=== PATIENT | female | born 1985 | race Caucasian/White ===

== ENCOUNTER → 2020-09-05 12:13 | Outpatient (CLI) | payer OTHER, SELFPAY ==
--- NOTE | 2020-09-05 | DI.RAD.S_ITS ---
PROCEDURE: XR CHEST 2V INDICATIONS: Encounter for other preprocedural examination TECHNIQUE: 2 views of the chest were acquired. COMPARISON: None. FINDINGS: Surgical changes and devices: None. Lungs and pleura: Lungs are clear. No pleural effusions or pneumothorax. Incidental high-density 1 mm presumed calcified granuloma projects in the right upper lobe. Mediastinum: Mediastinal contours are normal. Heart size is normal. Bones and chest wall: No suspicious bony abnormalities. Soft tissues appear unremarkable. IMPRESSION: No acute disease Dictated by: En Cortes M.D. on 09/05/2020 at 15:07 Approved by: En Cortes M.D. on 09/05/2020 at 15:09
[2020-09-05 12:38] LABS: Bacteria Urine None Seen; RBC Urine None Seen (0-5/HPF)
[2020-09-05 12:55] LABS: Add Manual Diff / Slide Review NO; Basophils Absolute Auto 100 /uL (0-100); Basophils Percent Auto 0.7 % (0-2); Eosinophils Absolute Auto 0 /uL (0-450); Eosinophils Percent Auto 0.5 % (2-4); Hematocrit 38.9 % (36-46); Lymphocytes Absolute Auto 1800 /uL (1100-4500); Lymphocytes Percent Auto 23.6 % (25-40); Mean Corpuscular HGB Conc 33.3 % (30-36); Mean Corpuscular Volume 87.1 fL (80-100); Monocytes Absolute Auto 400 /uL (0-900); Monocytes Percent Auto 4.8 % (3-14); Neutrophils Absolute Auto 5400 /uL (1500-7000); Neutrophils Percent Auto 70.4 % (50-75); Platelet Count 251 X10^3/uL (150-400); Red Blood Cell Count 4.47 X10^6/uL (4.0-5.2); White Blood Cell Count 7.6 X10^3/uL (4.5-11.0)
[2020-09-05 13:04] LABS: INR 1.1 (0.9-1.3); Prothrombin Time 12.8 SECONDS (10.1-12.7)
[2020-09-05 13:07] LABS: PTT Partial Thromboplastin Tim 32 SECONDS (26.4-36.2)
[2020-09-05 13:09] LABS: Hemoglobin A1C% w Est Avg Glu 5.2 % (4.0-6.0)
[2020-09-05 13:11] LABS: Alanine Aminotransferase 46 IU/L (<35); Albumin 4.6 g/dL (3.5-5.0); Albumin Globulin Ratio 1.4 (1.0-2.8); Alkaline Phosphatase 80 U/L (38-126); Aspartate Aminotransferase 44 IU/L (14-36); BUN Creatinine Ratio 33.3 (6-22); Bilirubin Total 0.3 mg/dL (0.2-1.3); Blood Urea Nitrogen 18 mg/dL (7-17); Calcium 9.7 mg/dL (8.4-10.2); Carbon Dioxide 25 mmol/L (22-32); Chloride 105 mmol/L (98-107); Estimated Glomerular Filt Rate > 60.0 mL/min (>60); Globulin 3.2 g/dL (1.7-4.1); Glucose 104 mg/dL (70-100); HEMOLYSIS < 15 (0-50); Potassium 4.3 mmol/L (3.4-5.1); Sodium 138 mmol/L (137-145); Total Protein 7.8 g/dL (6.3-8.2)
[2020-09-05 13:27] LABS: HCG Quantitative /Beta subunit < 2.4 mIU/mL
[2020-09-05 15:16] LABS: HIV 1 & 2 Ab/Ag 4th Gen Combo NEGATIVE (NEGATIVE); Hep C Virus Ab w/Reflex Quant NEGATIVE s/c (NEGATIVE)
[2020-09-05 16:05] LABS: Appearance Urine UA Clear; Color Urine UA Yellow; pH Urine UA 6.5 (4.5-8.0)
[2020-09-05 16:06] LABS: Bilirubin Urine UA NEGATIVE (NEGATIVE); Glucose Urine UA NEGATIVE (Negative); Ketones Urine UA NEGATIVE (NEGATIVE); Nitrite Urine UA NEGATIVE (Negative); Occult Blood Urine UA NEGATIVE (Negative); Protein Urine UA NEGATIVE (Negative); Specific Gravity Urine UA 1.015 (1.000-1.035)
[2020-09-05 16:07] LABS: Culture Indicated Urine Cult Not Indicated; Leukocyte Esterase Urine UA NEGATIVE (NEGATIVE); Squamous Epithelial Cell Urine 0-1 /HPF (0-5/HPF); Urobilinogen Urine UA 0.2 E.U./dL (0.2); WBC Urine 0-1/HPF (0-5/HPF)
[2020-09-05 17:41] LABS: Thyroid Stimulating Hormone 0.431 uIU/mL (0.47-4.68)
== END ==
PROVIDERS: PCP Family Medicine; Visit Provider Plastic Surgery
DX: Z01.818 Encounter for other preprocedural examination (principal)
CPT/HCPCS: 36415; 71046; 80053; 81001; 83036; 84443; 84702; 85025; 85610; 85730; 86803; 87389; 93005; 93010

== ENCOUNTER → 2020-09-08 10:06 | Outpatient (CLI) | payer OTHER, SELFPAY ==
[2020-09-08 10:54] LABS: Hemoglobin A1C% w Est Avg Glu 5.1 % (4.0-6.0)
[2020-09-08 11:24] LABS: Alanine Aminotransferase 27 IU/L (<35); Albumin 4.4 g/dL (3.5-5.0); Albumin Globulin Ratio 1.6 (1.0-2.8); Alkaline Phosphatase 67 U/L (38-126); Aspartate Aminotransferase 24 IU/L (14-36); BUN Creatinine Ratio 30.6 (6-22); Bilirubin Total 0.3 mg/dL (0.2-1.3); Blood Urea Nitrogen 19 mg/dL (7-17); Calcium 9.8 mg/dL (8.4-10.2); Carbon Dioxide 25 mmol/L (22-32); Chloride 105 mmol/L (98-107); Estimated Glomerular Filt Rate > 60.0 mL/min (>60); Globulin 2.7 g/dL (1.7-4.1); Glucose 96 mg/dL (70-100); HEMOLYSIS < 15 (0-50); Potassium 4.3 mmol/L (3.4-5.1); Sodium 139 mmol/L (137-145); Total Protein 7.1 g/dL (6.3-8.2)
[2020-09-08 11:55] LABS: Thyroid Stimulating Hormone 1.19 uIU/mL (0.47-4.68)
== END ==
LOC: LAB 10:09
PROVIDERS: PCP Family Medicine; Referring Provider Plastic Surgery; Visit Provider Plastic Surgery
DX: Z01.818 Encounter for other preprocedural examination (principal)
CPT/HCPCS: 36415; 80053; 83036; 84443; 93005; 93010

== ENCOUNTER 2020-09-13 10:52 | Emergency (ER) | payer OTHER, SELFPAY ==
[2020-09-13 10:53] VITALS: BP 140/82; PULSE 81; RESP 15; TEMP 36.5; O2SAT 100; BMI 22.1
[2020-09-13 11:14] LABS: Appearance Urine UA CLEAR; Bilirubin Urine UA NEGATIVE (NEGATIVE); Color Urine UA YELLOW; Glucose Urine UA TRACE g/dL (Negative); Ketones Urine UA NEGATIVE (NEGATIVE); Leukocyte Esterase Urine UA NEGATIVE (NEGATIVE); Nitrite Urine UA POSITIVE (Negative); Occult Blood Urine UA 2+ (Negative); Protein Urine UA 1+ (Negative); Specific Gravity Urine UA 1.025 (1.000-1.035)
[2020-09-13] MEDS: ONDANSETRON 4 MG ODT SL (11:28)
[2020-09-13 11:29] LABS: Bacteria Urine Few (2-10); Culture Indicated Urine Specimen Cultured; RBC Urine 1-5/HPF (0-5/HPF); Squamous Epithelial Cell Urine 0-1 /HPF (0-5/HPF); WBC Urine 0-1/HPF (0-5/HPF)
--- NOTE | 2020-09-13 11:39 | ED.FEMALEGU ---
HPI - Female Genitourinary General Chief complaint: Urogenital-Female Stated complaint: uti/n&v x5days on Macrobid Time Seen by Provider: 09/13/20 11:39 Source: patient Mode of arrival: Ambulatory Limitations: no limitations History of Present Illness HPI Narrative: This is a 34-year-old female emergency department for just about a week of urinary frequency. Patient had a tele visit was started on Macrobid orally and has been taking azo and has been having worsening abdominal discomfort. She has had sharp pains in the pelvic area as well as worsening dysuria, urinary frequency, sense of urgency and incomplete emptying. She denies any flank pain but states it is starting to wrap towards the sides. She has not had any fevers or chills she has had nausea and vomiting several times today and has not been able to keep down any oral fluids. She has been nauseated for the last several days. She has had some mild diarrhea no black or bloody stools. She denies any vaginal bleeding or discharge. Patient states she has history of anti polysaccharide antibiotic deficiency, hypothyroidism and vitamin-D deficiency. Patient states she has been off her IV IG for several months after his operations specialist left the area. She has been in contact with her her primary care physician but they do not regularly prescribed her medication. Patient did state that the company that provides her medication reached out to her to ask if she needed assistance this week but that she did not really explore that option. She does have an operations specialist in [place] but because she no longer lives states they are not willing to prescribe her. Patient states that her at her tele visit they did not obtain a outpatient urine sample and treated on symptomatology. 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 She states this occurs when she is off her IV IG. Related Data Home Medications Medication Instructions Recorded Confirmed albuterol sulfate 90 mcg/actuation 2 puff INHALATION Q6H PRN 09/06/20 09/06/20 aerosol inhaler epinephrine 0.3 mg/0.3 mL 0.3 mg IM Q5-15M PRN 09/06/20 09/06/20 injection, auto-injector ergocalciferol (vitamin D2) 1,250 1,250 mcg PO QWEEK 09/06/20 09/06/20 mcg (50,000 unit) capsule levothyroxine 50 mcg capsule 50 mcg PO DAILY 09/06/20 09/06/20 Previous Rx's Medication Instructions Recorded cephalexin 500 mg PO BID 7 Days #14 cap 09/13/20 ondansetron 4 mg PO QID PRN #7 tab 09/13/20 Allergies Allergy/AdvReac Type Severity Reaction Status Date / Time No Known Drug Allergies Allergy Verified 09/13/20 10:58 walnuts Allergy Severe my throat Uncoded 09/06/20 10:36 swells up Review of Systems Review of Systems ROS Unobtainable: All systems reviewed & are unremarkable except as noted in HPI and below Patient History Medical History Anti-polysaccharide antibody deficiency Elevated liver enzymes Hyperglycemia Hypothyroidism Lung granuloma Vitamin D deficiency alcohol intake frequency: holidays/special occasions only Substance Use Type: does not use Exam Narrative Exam Narrative: GENERAL: Alert and oriented x three, thin female in mild distress. Patient was ambulating back to the room from the bathroom when I met her in the examination room. HEENT: Head normocephalic, atraumatic, EOMI, pupils reactive, face symmetric, moist mucous membranes NECK: Supple, full range of motion CARDIOVASCULAR: Regular rate and rhythm without murmurs, rubs or gallops. RESPIRATORY: Breath sounds equal bilaterally, no wheezes rales or rhonchi. ABDOMEN: Soft, mild suprapubic tenderness. Normoactive bowel sounds all 4 quadrants. No guarding or rebound, rigidity, no mass : No CVA tenderness EXTREMITIES: Normal range of motion, no clubbing or edema. Neurovascularly intact NEUROLOGICAL: Cranial nerves II through XII grossly intact. Moving all extremities SKIN: Warm, dry, no petechiae, no rashes or lesions. Initial Vital Signs Initial Vital Signs: Vital Signs Temperature 97.7 F 09/13/20 10:53 Pulse Rate 81 09/13/20 10:53 Respiratory Rate 15 09/13/20 10:53 Blood Pressure 140/82 09/13/20 10:53 Pulse Oximetry 100 09/13/20 10:53 Course Orders Ordered: ED Orders 09/13/20 11:02 Urinalysis and Microscopic Stat Urine Culture Stat 09/13/20 12:30 Complete Blood Count AUTO DIFF Stat Comprehensive Metabolic Panel Stat Lipase Stat Discontinued Medications Sodium Chloride (Normal Saline 0.9%) 1,000 mls @ 1,000 mls/hr IV BOLUS ONE Stop: 09/13/20 13:03 Last Infusion: 09/13/20 13:43 Dose: 0 mls/hr Documented by: Admin: 09/13/20 12:41 Dose: 1,000 mls/hr Documented by: OMAR Ceftriaxone Sodium/Dextrose (Rocephin) 1 gm in 50 mls @ 100 mls/hr IV NOW ONE Stop: 09/13/20 12:34 Last Infusion: 09/13/20 13:20 Dose: 0 mls/hr Documented by: Admin: 09/13/20 12:42 Dose: 100 mls/hr Documented by: OMAR Ondansetron HCl (Ondansetron 4 Mg Odt) 4 mg SL NOW ONE Stop: 09/13/20 11:24 Last Admin: 09/13/20 11:28 Dose: 4 mg Documented by: OMAR Vital Signs Vital signs: Vital Signs - 8 hr 09/13/20 13:46 Pulse Rate 80 Respiratory Rate 18 Blood Pressure 130/72 Pulse Oximetry 98 MDM - Female Genitourinary Lab Data Attestation: I reviewed the patient's lab results. Result diagrams: 09/13/20 12:30 09/13/20 12:30 Labs: Lab Results 09/13/20 09/13/20 09/13/20 Range/Units 11:02 12:30 12:30 WBC 5.5 (4.5-11.0) X10^3/uL RBC 4.09 (4.0-5.2) X10^6/uL Hgb 11.9 L (12.0-16.0) g/dL Hct 35.5 L (36-46) % MCV 86.8 (80-100) fL MCH 29.1 (26-34) PG MCHC 33.5 (30-36) % RDW 12.7 (11.6-14.8) % Plt Count 210 (150-400) X10^3/uL Neut % (Auto) 46.9 L (50-75) % Lymph % (Auto) 45.2 H (25-40) % [place] % (Auto) 5.5 (3-14) % Eos % (Auto) 1.6 L (2-4) % Baso % (Auto) 0.8 (0-2) % Neut # (Auto) 2600 (3168-0141) /uL Lymph # (Auto) 2500 (6609-8637) /uL [place] # (Auto) 300 (0-900) /uL Eos # (Auto) 100 (0-450) /uL Baso # (Auto) 0 (0-100) /uL Sodium 137 (137-145) mmol/L Potassium 4.1 (3.4-5.1) mmol/L Chloride 105 (98-107) mmol/L Carbon Dioxide 27 (22-32) mmol/L BUN 14 (7-17) mg/dL Creatinine 0.48 L (0.52-1.04) mg/dL Estimated GFR > 60.0 (>60) mL/min BUN/Creatinine Ratio 29.2 H (6-22) Glucose 82 (70-100) mg/dL Calcium 9.5 (8.4-10.2) mg/dL Total Bilirubin 0.3 (0.2-1.3) mg/dL AST 24 (14-36) IU/L ALT 20 (<35) IU/L Alkaline Phosphatase 67 (38-126) U/L Total Protein 7.4 (6.3-8.2) g/dL Albumin 4.5 (3.5-5.0) g/dL Globulin 2.9 (1.7-4.1) g/dL Albumin/Globulin Ratio 1.6 (1.0-2.8) Lipase (23-300) U/L Urine Color Yellow Urine Appearance Clear Urine pH 6.0 (4.5-8.0) Ur Specific [place] 1.025 (1.000-1.035) Urine Protein 1+ H (Negative) Urine Glucose (UA) Trace H (Negative) g/dL Urine Ketones Negative (NEGATIVE) Urine Occult Blood 2+ H (Negative) Urine Nitrate Positive H (Negative) Urine Bilirubin Negative (NEGATIVE) Urine Urobilinogen 1.0 (0.2) E.U./dL Ur Leukocyte Esterase Negative (NEGATIVE) Urine RBC 1-5/hpf (0-5/HPF) Urine WBC 0-1/hpf (0-5/HPF) Ur Squamous Epith Cells 0-1 /hpf (0-5/HPF) Urine Bacteria Few (2-10) H (None) Ur Culture Indicated? Specimen cultured 09/13/20 Range/Units 12:30 WBC (4.5-11.0) X10^3/uL RBC (4.0-5.2) X10^6/uL Hgb (12.0-16.0) g/dL Hct (36-46) % MCV (80-100) fL MCH (26-34) PG MCHC (30-36) % RDW (11.6-14.8) % Plt Count (150-400) X10^3/uL Neut % (Auto) (50-75) % Lymph % (Auto) (25-40) % [place] % (Auto) (3-14) % Eos % (Auto) (2-4) % Baso % (Auto) (0-2) % Neut # (Auto) (6488-8463) /uL Lymph # (Auto) (5014-3152) /uL [place] # (Auto) (0-900) /uL Eos # (Auto) (0-450) /uL Baso # (Auto) (0-100) /uL Sodium (137-145) mmol/L Potassium (3.4-5.1) mmol/L Chloride (98-107) mmol/L Carbon Dioxide (22-32) mmol/L BUN (7-17) mg/dL Creatinine (0.52-1.04) mg/dL Estimated GFR (>60) mL/min BUN/Creatinine Ratio (6-22) Glucose (70-100) mg/dL Calcium (8.4-10.2) mg/dL Total Bilirubin (0.2-1.3) mg/dL AST (14-36) IU/L ALT (<35) IU/L Alkaline Phosphatase (38-126) U/L Total Protein (6.3-8.2) g/dL Albumin (3.5-5.0) g/dL Globulin (1.7-4.1) g/dL Albumin/Globulin Ratio (1.0-2.8) Lipase 61 (23-300) U/L Urine Color Urine Appearance Urine pH (4.5-8.0) Ur Specific [place] (1.000-1.035) Urine Protein (Negative) Urine Glucose (UA) (Negative) g/dL Urine Ketones (NEGATIVE) Urine Occult Blood (Negative) Urine Nitrate (Negative) Urine Bilirubin (NEGATIVE) Urine Urobilinogen (0.2) E.U./dL Ur Leukocyte Esterase (NEGATIVE) Urine RBC (0-5/HPF) Urine WBC (0-5/HPF) Ur Squamous Epith Cells (0-5/HPF) Urine Bacteria (None) Ur Culture Indicated? Point of Care Testing Test Results Negative MDM Narrative Medical decision making narrative: This is a 34-year-old female with UTI nausea vomiting without fever who has had 5 days of Macrobid but never had a urine culture or urinalysis prior to starting antibiotics. Her UA today is consistent. She does have a history immune deficiency and typically gets IV IG but has been without for several months as her operations specialist left the area and she has not reestablished. Patient labs do not show any major changes. She is able to tolerate orals here and was given a dose of IV Rocephin and changed antibiotics. Return precautions are discussed and urine culture is pending. Discharge Plan Departure Patient Disposition: Home Clinical Impression: UTI (urinary tract infection) Instructions: DI for Urinary Tract Infection (UTI) Activity Restrictions/Additional Instructions: Follow up with your physician in the next 2-3 days for recheck. Urine culture is pending and typically results in 48-72 hours. You can contact [facility] allergy [facility] inflammation clinic at [phone] [email or web address] is the website. This is an option and may be the closest options for a operations specialist although contacting your medication representatives may be able to give you some better closer options. Take antibiotics until they are completely gone. You can stop your Macrobid. You may take Azo if you find it helpful. Continue to hydrate regularly. You may take Zofran 1 tablet every 6 hours as needed for nausea. Prescription to [facility] in [place] Please return for fevers, lightheadedness or passing out, persistent vomiting, rapidly worsening abdominal, back or flank pain, black or bloody stools or other new or concerning symptoms. Prescriptions: New cephalexin 500 mg capsule 500 mg PO BID 7 Days Qty: 14 RF: 0 ondansetron 4 mg tablet,disintegrating 4 mg PO QID PRN (Reason: nausea and vomiting) Qty: 7 RF: 0 No Action levothyroxine 50 mcg capsule 50 mcg PO DAILY RF: 0 ergocalciferol (vitamin D2) 1,250 mcg (50,000 unit) capsule 1,250 mcg PO QWEEK RF: 0 epinephrine 0.3 mg/0.3 mL auto-injector 0.3 mg IM Q5-15M PRNRF: 0 albuterol sulfate 90 mcg/actuation HFA aerosol inhaler 2 puff inhalation Q6H PRNRF: 0 Referrals: Caleb Esposito MD [Primary Care Provider] -
[2020-09-13] MEDS: SODIUM CHLORIDE 0.9% 1,000 ML 1000 ML IV (12:41)
[2020-09-13] MEDS: CEFTRIAXONE 1 GM/50 ML FROZ.PIGGY IV (12:42)
[2020-09-13 12:43] LABS: Add Manual Diff / Slide Review NO; Basophils Absolute Auto 0 /uL (0-100); Basophils Percent Auto 0.8 % (0-2); Eosinophils Absolute Auto 100 /uL (0-450); Eosinophils Percent Auto 1.6 % (2-4); Hematocrit 35.5 % (36-46); Hemoglobin 11.9 g/dL (12.0-16.0); Lymphocytes Absolute Auto 2500 /uL (1100-4500); Lymphocytes Percent Auto 45.2 % (25-40); Mean Corpuscular HGB Conc 33.5 % (30-36); Mean Corpuscular Hemoglobin 29.1 PG (26-34); Mean Corpuscular Volume 86.8 fL (80-100); Monocytes Absolute Auto 300 /uL (0-900); Monocytes Percent Auto 5.5 % (3-14); Neutrophils Absolute Auto 2600 /uL (1500-7000); Neutrophils Percent Auto 46.9 % (50-75); Platelet Count 210 X10^3/uL (150-400); Red Blood Cell Count 4.09 X10^6/uL (4.0-5.2); Red Cell Distribution Width 12.7 % (11.6-14.8); White Blood Cell Count 5.5 X10^3/uL (4.5-11.0)
[2020-09-13 12:58] LABS: Alanine Aminotransferase 20 IU/L (<35); Albumin 4.5 g/dL (3.5-5.0); Albumin Globulin Ratio 1.6 (1.0-2.8); Alkaline Phosphatase 67 U/L (38-126); Aspartate Aminotransferase 24 IU/L (14-36); BUN Creatinine Ratio 29.2 (6-22); Bilirubin Total 0.3 mg/dL (0.2-1.3); Blood Urea Nitrogen 14 mg/dL (7-17); Calcium 9.5 mg/dL (8.4-10.2); Carbon Dioxide 27 mmol/L (22-32); Chloride 105 mmol/L (98-107); Estimated Glomerular Filt Rate > 60.0 mL/min (>60); Globulin 2.9 g/dL (1.7-4.1); Glucose 82 mg/dL (70-100); HEMOLYSIS < 15 (0-50); Lipase 61 U/L (23-300); Potassium 4.1 mmol/L (3.4-5.1); Sodium 137 mmol/L (137-145); Total Protein 7.4 g/dL (6.3-8.2)
[2020-09-13 13:46] VITALS: BP 130/72; PULSE 80; RESP 18; O2SAT 98
== END 2020-09-13 14:10 | disposition home or self-care (01) ==
PROVIDERS: Emergency Provider Emergency Medicine; PCP Family Medicine
DX: N39.0 Urinary tract infection, site not specified (principal); R10.2 Pelvic and perineal pain; R11.0 Nausea
CPT/HCPCS: 36415; 80053; 81001; 81025; 83690; 85025; 87086; 96365; 99284

== ENCOUNTER → 2020-09-14 14:42 | Outpatient (CLI) | payer OTHER, SELFPAY ==
[2020-09-14 15:48] LABS: Cholesterol 208 mg/dL (140-199); HDL Cholesterol 49 mg/dL (40-60); LDL Cholesterol Calculated 131 mg/dL (<100); Triglycerides 139 mg/dL (35-150)
[2020-09-19 01:11] LABS: QuantiFERON Mitogen Value >10.00 IU/mL (.); QuantiFERON Nil Value 0.28 IU/mL (.); QuantiFERON TB Gold Plus Negative (Negative); QuantiFERON TB1 Ag Value 0.28 IU/mL (.); QuantiFERON TB2 Ag Value 0.16 IU/mL (.)
== END ==
PROVIDERS: PCP Family Medicine; Referring Provider Surgery Plastic and Reconstructive Surgery; Visit Provider Surgery Plastic and Reconstructive Surgery
DX: J84.10 Pulmonary fibrosis, unspecified (principal); R74.8 Abnormal levels of other serum enzymes
CPT/HCPCS: 36415; 80061; 86480

== ENCOUNTER 2020-09-15 11:52 | Emergency (ER) | payer OTHER, SELFPAY ==
[2020-09-15 11:56] VITALS: BP 122/91; PULSE 83; RESP 14; TEMP 36.7; O2SAT 99; BMI 22.1
--- NOTE | 2020-09-15 13:18 | PC.NURSE ---
tender lower abd. patient has been on abx, taking azo at home. No relief of symptoms. Started initially one week ago. Intermittent sharp like someone is electrocuting me
[2020-09-15 13:22] LABS: Add Manual Diff / Slide Review NO; Basophils Absolute Auto 0 /uL (0-100); Basophils Percent Auto 0.6 % (0-2); Eosinophils Absolute Auto 100 /uL (0-450); Eosinophils Percent Auto 1.9 % (2-4); Hematocrit 36.7 % (36-46); Hemoglobin 12.1 g/dL (12.0-16.0); Lymphocytes Absolute Auto 2700 /uL (1100-4500); Lymphocytes Percent Auto 40.6 % (25-40); Mean Corpuscular HGB Conc 32.9 % (30-36); Monocytes Absolute Auto 500 /uL (0-900); Monocytes Percent Auto 6.8 % (3-14); Neutrophils Absolute Auto 3400 /uL (1500-7000); Neutrophils Percent Auto 50.1 % (50-75); Platelet Count 207 X10^3/uL (150-400); Red Blood Cell Count 4.18 X10^6/uL (4.0-5.2); Red Cell Distribution Width 12.8 % (11.6-14.8); White Blood Cell Count 6.7 X10^3/uL (4.5-11.0)
[2020-09-15 13:28] LABS: INR 1.1 (0.9-1.3); Prothrombin Time 12.7 SECONDS (10.1-12.7)
[2020-09-15 13:29] LABS: Bacteria Urine None Seen; WBC Urine None Seen (0-5/HPF)
[2020-09-15 13:31] LABS: PTT Partial Thromboplastin Tim 31 SECONDS (26.4-36.2)
[2020-09-15] MEDS: PHENAZOPYRIDINE 100 MG TABLET 200 MG PO (13:32)
[2020-09-15] MEDS: SODIUM CHLORIDE 0.9% 1,000 ML 1000 ML IV (13:32)
[2020-09-15] MEDS: ONDANSETRON 4 MG/2 ML INJ IV (13:32)
[2020-09-15 13:36] LABS: Lactate (Lactic Acid) 0.7 mmol/L (0.7-2.1)
[2020-09-15 13:37] LABS: Alanine Aminotransferase 18 IU/L (<35); Albumin 4.4 g/dL (3.5-5.0); Albumin Globulin Ratio 1.4 (1.0-2.8); Alkaline Phosphatase 64 U/L (38-126); Aspartate Aminotransferase 22 IU/L (14-36); BUN Creatinine Ratio 19.6 (6-22); Bilirubin Total 0.3 mg/dL (0.2-1.3); Blood Urea Nitrogen 10 mg/dL (7-17); Calcium 9.4 mg/dL (8.4-10.2); Carbon Dioxide 29 mmol/L (22-32); Chloride 103 mmol/L (98-107); Estimated Glomerular Filt Rate > 60.0 mL/min (>60); Globulin 3.1 g/dL (1.7-4.1); Glucose 84 mg/dL (70-100); HEMOLYSIS < 15 (0-50); Lipase 71 U/L (23-300); Sodium 138 mmol/L (137-145); Total Protein 7.5 g/dL (6.3-8.2)
[2020-09-15 13:43] LABS: Culture Indicated Urine Cult Not Indicated; RBC Urine 1-5/HPF (0-5/HPF)
--- NOTE | 2020-09-15 13:43 | ED_ITS ---
HPI - Female Genitourinary General Chief complaint: Urogenital-Female Stated complaint: UTI not going away, sent by PCP Time Seen by Provider: 09/15/20 12:59 Source: patient Mode of arrival: Ambulatory Limitations: no limitations History of Present Illness HPI Narrative: Patient is a 34-year-old female who presents with persistent ongoing painful frequent urination. She was diagnosed with UTI by tele medicine 1 week ago placed on Macrobid for 5 days. She is in seen in the ED 2 days ago for worsening pain. At that time she was given a dose of IV Rocephin and switch over to Keflex. Her urine did show nitrate and blood however her urine culture and sensitivity surprisingly did not show any growth. Urine today does not show nitrate but she is continuing to have increasing suprapubic pain. She was having flank pain she says that that has improved. She denies fever or chills. She has continue to take [id number] azo as and was given Pyridium here in the ED for worsening symptoms. MD Complaint: UTI Onset (ago): week(s) (1) Related Data Home Medications Medication Instructions Recorded Confirmed albuterol sulfate 90 mcg/actuation 2 puff INHALATION Q6H PRN 09/06/20 09/06/20 aerosol inhaler epinephrine 0.3 mg/0.3 mL 0.3 mg IM Q5-15M PRN 09/06/20 09/06/20 injection, auto-injector ergocalciferol (vitamin D2) 1,250 1,250 mcg PO QWEEK 09/06/20 09/06/20 mcg (50,000 unit) capsule levothyroxine 50 mcg capsule 50 mcg PO DAILY 09/06/20 09/06/20 Previous Rx's Medication Instructions Recorded cephalexin 500 mg PO BID 7 Days #14 cap 09/13/20 ondansetron 4 mg PO QID PRN #7 tab 09/13/20 phenazopyridine [Pyridium] 200 mg PO TID PRN #6 tab 09/15/20 Allergies Allergy/AdvReac Type Severity Reaction Status Date / Time No Known Drug Allergies Allergy Verified 09/15/20 12:00 walnuts Allergy Severe my throat Uncoded 09/06/20 10:36 swells up Review of Systems Review of Systems Narrative: GENERAL: Denies chills, fatigue, malaise, fever, sweats, travel HEENT: Denies sinus pain, ear pain, sore throat, difficulty swallowing, neck pain RESPIRATORY: Denies dyspnea, cough, wheezing, hemoptysis, sputum. CARDIOVASCULAR: Denies chest pain, palpitations, orthopnea, edema GASTROINTESTINAL: Denies nausea, vomiting, abdominal pain, diarrhea, constipation, melena. : See HP MUSCULOSKELETAL: Denies weakness, joint pain, or bony pain SKIN: No rash, no erythema, no pruritus NEUROLOGIC: Denies weakness, dizziness, headache, numbness, change in speech, confusion PSYCHIATRIC: No concerning psychosocial issues. 12 point review of systems is negative except for those stated above and HPI Patient History Medical History Anti-polysaccharide antibody deficiency Elevated liver enzymes Hyperglycemia Hypothyroidism Lung granuloma Vitamin D deficiency alcohol intake frequency: holidays/special occasions only Substance Use Type: does not use Exam Initial Vital Signs Initial Vital Signs: Vital Signs Temperature 98.1 F 09/15/20 11:56 Pulse Rate 83 09/15/20 11:56 Respiratory Rate 14 09/15/20 11:56 Blood Pressure 122/91 H 09/15/20 11:56 Pulse Oximetry 99 09/15/20 11:56 GENERAL: Alert well-appearing 34-year-old female and in no acute distress. HEENT: Head atraumatic,EOMI, pupils reactive, face symmetric, moist mucous membranes CARDIOVASCULAR: Regular rate and rhythm without murmurs, rubs or gallops. RESPIRATORY: Breath sounds equal bilaterally, no wheezes rales or rhonchi. ABDOMEN: Soft, mild suprapubic pain : No CVA tenderness PELVIC: External genitalia is normal, no vaginal bleeding, no vaginal discharge, no odor, cervical os is closed, no adnexal tenderness EXTREMITIES: Normal range of motion, no clubbing or edema. Neurovascularly intact NEUROLOGICAL: Alert and oriented x4.Normal gait and speech. SKIN: Warm, dry, no laceration, no petechiae, no rashes or lesions. Course Orders Ordered: ED Orders 09/15/20 13:10 Complete Blood Count AUTO DIFF Stat Comprehensive Metabolic Panel Stat Lactate (Lactic Acid) Stat Lipase Stat Partial Thromboplastin Time Stat Procalcitonin Stat Prothrombin Time INR Stat 09/15/20 13:28 Urine Microscopic Stat 09/15/20 13:31 Blood Culture Stat 09/15/20 14:26 CT abdomen pelvis w con Stat 09/15/20 15:45 Chlamydia/Gonoc/Myco Genital Stat Genital Culture Stat Wet Prep Tric BV Martha Stat 09/15/20 15:58 Chlamydia Gonorrhea PCR -URINE Stat Discontinued Medications Sodium Chloride (Normal Saline 0.9%) 1,000 mls @ 1,000 mls/hr IV BOLUS ONE Stop: 09/15/20 13:54 Last Infusion: 09/15/20 15:20 Dose: 0 mls/hr Documented by: Admin: 09/15/20 13:32 Dose: 1,000 mls/hr Documented by: GAUTAM Ceftriaxone Sodium/Dextrose (Rocephin) 1 gm in 50 mls @ 100 mls/hr IV NOW ONE Stop: 09/15/20 14:27 Last Infusion: 09/15/20 15:20 Dose: 0 mls/hr Documented by: Admin: 09/15/20 14:34 Dose: 100 mls/hr Documented by: CHING Ketorolac Tromethamine (Ketorolac 30 Mg/Ml Vial) 15 mg IV NOW ONE Stop: 09/15/20 13:59 Last Admin: 09/15/20 14:32 Dose: 15 mg Documented by: CHING Ondansetron HCl (Ondansetron 4 Mg/2 Ml Inj) 4 mg IV NOW ONE Stop: 09/15/20 13:22 Last Admin: 09/15/20 13:32 Dose: 4 mg Documented by: GAUTAM Phenazopyridine HCl (Phenazopyridine 100 Mg Tablet) 200 mg PO NOW ONE Stop: 09/15/20 12:56 Last Admin: 09/15/20 13:32 Dose: 200 mg Documented by: GAUTAM Vital Signs Vital signs: Vital Signs - 8 hr 09/15/20 11:56 09/15/20 16:10 Temperature 98.1 F Pulse Rate 83 78 Respiratory Rate 14 12 Blood Pressure 122/91 H 99/64 Pulse Oximetry 99 99 MDM - Female Genitourinary Lab Data Attestation: I reviewed the patient's lab results. Result diagrams: 09/15/20 13:10 09/15/20 13:10 Labs: Lab Results 09/15/20 09/15/20 09/15/20 Range/Units 13:10 13:10 13:10 WBC 6.7 (4.5-11.0) X10^3/uL RBC 4.18 (4.0-5.2) X10^6/uL Hgb 12.1 (12.0-16.0) g/dL Hct 36.7 (36-46) % MCV 88.0 (80-100) fL MCH 29.0 (26-34) PG MCHC 32.9 (30-36) % RDW 12.8 (11.6-14.8) % Plt Count 207 (150-400) X10^3/uL Neut % (Auto) 50.1 (50-75) % Lymph % (Auto) 40.6 H (25-40) % [place] % (Auto) 6.8 (3-14) % Eos % (Auto) 1.9 L (2-4) % Baso % (Auto) 0.6 (0-2) % Neut # (Auto) 3400 (6856-3369) /uL Lymph # (Auto) 2700 (9654-0782) /uL [place] # (Auto) 500 (0-900) /uL Eos # (Auto) 100 (0-450) /uL Baso # (Auto) 0 (0-100) /uL PT 12.7 (10.1-12.7) SECONDS INR 1.1 (0.9-1.3) APTT 31 (26.4-36.2) SECONDS Sodium 138 (137-145) mmol/L Potassium 4.0 (3.4-5.1) mmol/L Chloride 103 (98-107) mmol/L Carbon Dioxide 29 (22-32) mmol/L BUN 10 (7-17) mg/dL Creatinine 0.51 L (0.52-1.04) mg/dL Estimated GFR > 60.0 (>60) mL/min BUN/Creatinine Ratio 19.6 (6-22) Glucose 84 (70-100) mg/dL Lactate (0.7-2.1) mmol/L Calcium 9.4 (8.4-10.2) mg/dL Total Bilirubin 0.3 (0.2-1.3) mg/dL AST 22 (14-36) IU/L ALT 18 (<35) IU/L Alkaline Phosphatase 64 (38-126) U/L Total Protein 7.5 (6.3-8.2) g/dL Albumin 4.4 (3.5-5.0) g/dL Globulin 3.1 (1.7-4.1) g/dL Albumin/Globulin Ratio 1.4 (1.0-2.8) Lipase 71 (23-300) U/L Procalcitonin (<0.5) ng/mL Urine RBC (0-5/HPF) Urine WBC (0-5/HPF) Urine Bacteria (None) Ur Culture Indicated? Ur Chlamydia DNA (PCR) N gonorrhoeae DNA (PCR) 09/15/20 09/15/20 09/15/20 Range/Units 13:10 13:10 13:28 WBC (4.5-11.0) X10^3/uL RBC (4.0-5.2) X10^6/uL Hgb (12.0-16.0) g/dL Hct (36-46) % MCV (80-100) fL MCH (26-34) PG MCHC (30-36) % RDW (11.6-14.8) % Plt Count (150-400) X10^3/uL Neut % (Auto) (50-75) % Lymph % (Auto) (25-40) % [place] % (Auto) (3-14) % Eos % (Auto) (2-4) % Baso % (Auto) (0-2) % Neut # (Auto) (4900-9470) /uL Lymph # (Auto) (2632-4941) /uL [place] # (Auto) (0-900) /uL Eos # (Auto) (0-450) /uL Baso # (Auto) (0-100) /uL PT (10.1-12.7) SECONDS INR (0.9-1.3) APTT (26.4-36.2) SECONDS Sodium (137-145) mmol/L Potassium (3.4-5.1) mmol/L Chloride (98-107) mmol/L Carbon Dioxide (22-32) mmol/L BUN (7-17) mg/dL Creatinine (0.52-1.04) mg/dL Estimated GFR (>60) mL/min BUN/Creatinine Ratio (6-22) Glucose (70-100) mg/dL Lactate 0.7 (0.7-2.1) mmol/L Calcium (8.4-10.2) mg/dL Total Bilirubin (0.2-1.3) mg/dL AST (14-36) IU/L ALT (<35) IU/L Alkaline Phosphatase (38-126) U/L Total Protein (6.3-8.2) g/dL Albumin (3.5-5.0) g/dL Globulin (1.7-4.1) g/dL Albumin/Globulin Ratio (1.0-2.8) Lipase (23-300) U/L Procalcitonin < 0.03 (<0.5) ng/mL Urine RBC 1-5/hpf (0-5/HPF) Urine WBC None seen (0-5/HPF) Urine Bacteria None seen (None) Ur Culture Indicated? Cult not indicated Ur Chlamydia DNA (PCR) N gonorrhoeae DNA (PCR) 09/15/20 Range/Units 15:58 WBC (4.5-11.0) X10^3/uL RBC (4.0-5.2) X10^6/uL Hgb (12.0-16.0) g/dL Hct (36-46) % MCV (80-100) fL MCH (26-34) PG MCHC (30-36) % RDW (11.6-14.8) % Plt Count (150-400) X10^3/uL Neut % (Auto) (50-75) % Lymph % (Auto) (25-40) % [place] % (Auto) (3-14) % Eos % (Auto) (2-4) % Baso % (Auto) (0-2) % Neut # (Auto) (7694-5808) /uL Lymph # (Auto) (1362-2864) /uL [place] # (Auto) (0-900) /uL Eos # (Auto) (0-450) /uL Baso # (Auto) (0-100) /uL PT (10.1-12.7) SECONDS INR (0.9-1.3) APTT (26.4-36.2) SECONDS Sodium (137-145) mmol/L Potassium (3.4-5.1) mmol/L Chloride (98-107) mmol/L Carbon Dioxide (22-32) mmol/L BUN (7-17) mg/dL Creatinine (0.52-1.04) mg/dL Estimated GFR (>60) mL/min BUN/Creatinine Ratio (6-22) Glucose (70-100) mg/dL Lactate (0.7-2.1) mmol/L Calcium (8.4-10.2) mg/dL Total Bilirubin (0.2-1.3) mg/dL AST (14-36) IU/L ALT (<35) IU/L Alkaline Phosphatase (38-126) U/L Total Protein (6.3-8.2) g/dL Albumin (3.5-5.0) g/dL Globulin (1.7-4.1) g/dL Albumin/Globulin Ratio (1.0-2.8) Lipase (23-300) U/L Procalcitonin (<0.5) ng/mL Urine RBC (0-5/HPF) Urine WBC (0-5/HPF) Urine Bacteria (None) Ur Culture Indicated? Ur Chlamydia DNA (PCR) Not detected N gonorrhoeae DNA (PCR) Not detected Point of Care Testing Test Results Negative Urine Dip Bedside Urine Glucose Negative Bedside Urine Ketone - Negative Urine Specific [place] 1.010 Bedside Urine Occult Blood ++ Bedside Urine pH 7.0 Bedside Urine Protein - Negative Bedside Urine Urobilinogen - Negative Bedside Urine Nitrite - Negative Bedside Urine Leukocytes - Negative Esterase Imaging Data CT scan - abdomen/pelvis: Radiologist's Impression: PROCEDURE: CT ABDOMEN PELVIS W CON INDICATIONS: lower abdomen pain TECHNIQUE: After the administration of intravenous contrast, 5 mm thick sections acquired from the diaphragm to the symphysis. 5 mm coronal and sagittal reformats were acquired. For radiation dose reduction, the following was used: automated exposure control, adjustment of mA and/or kV according to patient size. COMPARISON: None. FINDINGS: ABDOMEN: Incidentally noted bilateral breast prostheses partially visualized. Lung bases: Normal. Heart: No significant findings. Liver: Hepatic steatosis. Gallbladder: Negative Bile ducts: Normal. Pancreas: Normal. Spleen: Normal. Adrenals: Normal. Kidneys and Ureters: Nonobstructive bilateral renal calculi measuring up to 2 mm on the left and 1 mm on the right. No hydronephrosis or perinephric stranding. Ureters appear normal. Stomach and duodenum: Postsurgical changes seen at the GE junction and stomach. Question trace hiatal hernia. Bowel: Normal appearance of the appendix. There is moderate stool throughout the colon. No evidence of acute diverticulitis. Incidentally noted fecalization appearance of the small bowel loops, of unknown clinical significance since there is no bowel dilatation or transition point. Other: No free fluid or air. Abdominal nodes: Normal. Aorta and IVC: Normal in size. Ventral wall: Normal. PELVIS: Bladder: Normal. Enlarged appearance of the uterus which is heterogeneous. The re are prominent left-sided parametrial vessels. Left gonadal vein is also prominent measuring approximately 6 mm in diameter. Inguinal region: No hernia. Pelvic nodes: Normal. Bones: No suspicious bony lesions. No vertebral body compression fractures. IMPRESSION: Enlarged appearance of the lower uterine segment/cervix. Please correlate clinically and with pelvic examination findings to exclude cervical carcinoma. This would be statistically unlikely given patient age. Enlarged heterogeneous appearance of the uterus, technically nonspecific please correlate clinically and with laboratory data to exclude endometritis or pelvic inflammatory disease. Prominent left-sided parametrial vessels and left gonadal vein. This raises the possibility of pelvic congestion syndrome however only in the appropriate clinical setting. Nonobstructive bilateral sub 5 mm calculi. Normal appendix Hepatic steatosis Additional chronic and incidental findings as above. Dictated by: En Cortes M.D. on 09/15/2020 at 15:11 MDM Narrative Medical decision making narrative: Patient urine had actually looks better no nitrates or leukocytes today she has suprapubic pain CT does show abnormal uterus. Pelvic exam is relatively benign she is not tender no significant abnormal discharge or odor. Low suspicion for PID. At this time I recommend she continue on Keflex as previously prescribed is intake Pyridium as needed Discharge Plan Departure Patient Disposition: Home Clinical Impression: UTI (urinary tract infection) Qualifiers: Urinary tract infection type: acute cystitis Hematuria presence: with hematuria Qualified Code(s): N30.01 - Acute cystitis with hematuria Instructions: DI for Urinary Tract Infection (UTI) Activity Restrictions/Additional Instructions: *You have been diagnosed with UTI *What to do: At this time please follow-up with her primary care provider I recommend staying on your current antibiotic it does seem to be working. *Continue to take medications as directed Continue Keflex until gone Pyridium 200 mg 3 times a day for 3 days if needed for painful frequent urination-->SENT TO [facility] [place] *Follow up with your primary care provider in 2-3 days *Return to ER if you should have fever, increasing pain, weakness or any new, worsening or concerning symptoms Prescriptions: New phenazopyridine [Pyridium] 200 mg tablet 200 mg PO TID PRN (Reason: pain) Qty: 6 RF: 0 No Action levothyroxine 50 mcg capsule 50 mcg PO DAILY RF: 0 ergocalciferol (vitamin D2) 1,250 mcg (50,000 unit) capsule 1,250 mcg PO QWEEK RF: 0 epinephrine 0.3 mg/0.3 mL auto-injector 0.3 mg IM Q5-15M PRNRF: 0 albuterol sulfate 90 mcg/actuation HFA aerosol inhaler 2 puff inhalation Q6H PRNRF: 0 cephalexin 500 mg capsule 500 mg PO BID 7 Days Qty: 14 RF: 0 ondansetron 4 mg tablet,disintegrating 4 mg PO QID PRN (Reason: nausea and vomiting) Qty: 7 RF: 0 Referrals: Caleb Esposito MD [Primary Care Provider] -
[2020-09-15 14:02] LABS: Procalcitonin < 0.03 ng/mL (<0.5)
--- NOTE | 2020-09-15 14:26 | DI.CT.S_ITS ---
PROCEDURE: CT ABDOMEN PELVIS W CON INDICATIONS: lower abdomen pain TECHNIQUE: After the administration of intravenous contrast, 5 mm thick sections acquired from the diaphragm to the symphysis. 5 mm coronal and sagittal reformats were acquired. For radiation dose reduction, the following was used: automated exposure control, adjustment of mA and/or kV according to patient size. COMPARISON: None. FINDINGS: ABDOMEN: Incidentally noted bilateral breast prostheses partially visualized. Lung bases: Normal. Heart: No significant findings. Liver: Hepatic steatosis. Gallbladder: Negative Bile ducts: Normal. Pancreas: Normal. Spleen: Normal. Adrenals: Normal. Kidneys and Ureters: Nonobstructive bilateral renal calculi measuring up to 2 mm on the left and 1 mm on the right. No hydronephrosis or perinephric stranding. Ureters appear normal. Stomach and duodenum: Postsurgical changes seen at the GE junction and stomach. Question trace hiatal hernia. Bowel: Normal appearance of the appendix. There is moderate stool throughout the colon. No evidence of acute diverticulitis. Incidentally noted fecalization appearance of the small bowel loops, of unknown clinical significance since there is no bowel dilatation or transition point. Other: No free fluid or air. Abdominal nodes: Normal. Aorta and IVC: Normal in size. Ventral wall: Normal. PELVIS: Bladder: Normal. Enlarged appearance of the uterus which is heterogeneous. There are prominent left-sided parametrial vessels. Left gonadal vein is also prominent measuring approximately 6 mm in diameter. Inguinal region: No hernia. Pelvic nodes: Normal. Bones: No suspicious bony lesions. No vertebral body compression fractures. IMPRESSION: Enlarged appearance of the lower uterine segment/cervix. Please correlate clinically and with pelvic examination findings to exclude cervical carcinoma. This would be statistically unlikely given patient age. Enlarged heterogeneous appearance of the uterus, technically nonspecific please correlate clinically and with laboratory data to exclude endometritis or pelvic inflammatory disease. Prominent left-sided parametrial vessels and left gonadal vein. This raises the possibility of pelvic congestion syndrome however only in the appropriate clinical setting. Nonobstructive bilateral sub 5 mm calculi. Normal appendix Hepatic steatosis Additional chronic and incidental findings as above. Dictated by: En Cortes M.D. on 09/15/2020 at 15:11 Approved by: En Cortes M.D. on 09/15/2020 at 15:24
[2020-09-15] MEDS: KETOROLAC 30 MG/ML VIAL 15 MG IV (14:32)
[2020-09-15] MEDS: CEFTRIAXONE 1 GM/50 ML FROZ.PIGGY IV (14:34)
[2020-09-15 16:10] VITALS: BP 99/64; PULSE 78; RESP 12; O2SAT 99
[2020-09-15 17:40] LABS: Urine N gonorrhoeae NOT DETECTED
[2020-09-15 17:57] LABS: Urine Chlamydia NOT DETECTED
[2020-09-20 22:23] LABS: Chlamydia trachomatis Negative (Negative); Mycoplasma genitalium Negative (Negative); Neisseria gonorrhoeae Negative (Negative)
== END 2020-09-15 16:13 | disposition home or self-care (01) ==
PROVIDERS: Emergency Provider Emergency Medicine; PCP Family Medicine
DX: N30.01 Acute cystitis with hematuria (principal); R10.30 Lower abdominal pain, unspecified
CPT/HCPCS: 36415; 74177; 80053; 81003; 81015; 81025; 83605; 83690; 84145; 85025; 85610; 85730; 87040; 87070; 87205; 87210; 87491; 87563; 87591; 96361; 96365; 96375; 99284; J1885; J2405

== ENCOUNTER → 2020-09-26 12:24 | Outpatient (CLI) | payer OTHER, SELFPAY ==
[2020-09-26 14:42] LABS: Add Manual Diff / Slide Review NO; Basophils Absolute Auto 0 /uL (0-100); Basophils Percent Auto 0.5 % (0-2); Eosinophils Absolute Auto 100 /uL (0-450); Eosinophils Percent Auto 1.6 % (2-4); Hematocrit 35.1 % (36-46); Hemoglobin 11.5 g/dL (12.0-16.0); Lymphocytes Absolute Auto 2300 /uL (1100-4500); Lymphocytes Percent Auto 32.4 % (25-40); Mean Corpuscular HGB Conc 32.8 % (30-36); Mean Corpuscular Hemoglobin 28.9 PG (26-34); Mean Corpuscular Volume 87.9 fL (80-100); Monocytes Absolute Auto 500 /uL (0-900); Monocytes Percent Auto 6.4 % (3-14); Neutrophils Absolute Auto 4200 /uL (1500-7000); Neutrophils Percent Auto 59.1 % (50-75); Platelet Count 208 X10^3/uL (150-400); Red Blood Cell Count 3.99 X10^6/uL (4.0-5.2); Red Cell Distribution Width 12.7 % (11.6-14.8); White Blood Cell Count 7.1 X10^3/uL (4.5-11.0)
[2020-09-26 14:43] LABS: Appearance Urine UA CLEAR; Bilirubin Urine UA NEGATIVE (NEGATIVE); Color Urine UA YELLOW; Glucose Urine UA NEGATIVE (Negative); Ketones Urine UA NEGATIVE (NEGATIVE); Leukocyte Esterase Urine UA NEGATIVE (NEGATIVE); Nitrite Urine UA NEGATIVE (Negative); Occult Blood Urine UA 3+ (Negative); Protein Urine UA 1+ (Negative); Urobilinogen Urine UA 0.2 E.U./dL (0.2)
[2020-09-26 14:44] LABS: pH Urine UA 6.5 (4.5-8.0)
[2020-09-26 14:49] LABS: INR 1.2 (0.9-1.3); Prothrombin Time 13.1 SECONDS (10.1-12.7)
[2020-09-26 14:52] LABS: PTT Partial Thromboplastin Tim 32 SECONDS (26.4-36.2)
[2020-09-26 14:53] LABS: Bacteria Urine Few (2-10); Culture Indicated Urine Specimen Cultured; Mucus Urine 2+ (Negative); RBC Urine >100/HPF (0-5/HPF); Squamous Epithelial Cell Urine 1-5 /HPF (0-5/HPF); WBC Urine 0-1/HPF (0-5/HPF)
[2020-09-26 15:06] LABS: HEMOLYSIS < 15 (0-50); Potassium 4.4 mmol/L (3.4-5.1)
[2020-09-26 15:07] LABS: Alanine Aminotransferase 25 IU/L (<35); Albumin 4.3 g/dL (3.5-5.0); Albumin Globulin Ratio 1.4 (1.0-2.8); Alkaline Phosphatase 63 U/L (38-126); Aspartate Aminotransferase 26 IU/L (14-36); BUN Creatinine Ratio 29.4 (6-22); Bilirubin Total 0.4 mg/dL (0.2-1.3); Blood Urea Nitrogen 15 mg/dL (7-17); Calcium 9.2 mg/dL (8.4-10.2); Carbon Dioxide 23 mmol/L (22-32); Chloride 106 mmol/L (98-107); Estimated Glomerular Filt Rate > 60.0 mL/min (>60); Glucose 85 mg/dL (70-100); Sodium 137 mmol/L (137-145); Total Protein 7.3 g/dL (6.3-8.2)
[2020-09-26 15:20] LABS: HCG Quantitative /Beta subunit < 2.4 mIU/mL
[2020-09-26 15:55] LABS: Thyroid Stimulating Hormone 0.824 uIU/mL (0.47-4.68)
[2020-09-26 19:54] LABS: HIV 1 & 2 Ab/Ag 4th Gen Combo NEGATIVE (NEGATIVE); Hep C Virus Ab w/Reflex Quant NEGATIVE s/c (NEGATIVE)
== END ==
PROVIDERS: PCP Family Medicine
DX: Z01.818 Encounter for other preprocedural examination (principal)
CPT/HCPCS: 36415; 80053; 81001; 83036; 84443; 84702; 85025; 85610; 85730; 86803; 87086; 87389

== ENCOUNTER → 2021-01-04 12:05 | Outpatient (CLI) | payer OTHER, SELFPAY ==
[2021-01-04 13:18] LABS: Hemoglobin A1C% w Est Avg Glu 5.2 % (4.0-6.0)
[2021-01-04 13:45] LABS: TSH w/ Reflex to FT4 0.79 uIU/mL (0.47-4.68)
[2021-01-04 15:11] LABS: Vitamin D 25 Hydroxy (D3) 58.9 ng/mL (30.0-100.0)
== END ==
PROVIDERS: PCP Family Medicine; Referring Provider Family Medicine; Visit Provider Family Medicine
DX: R73.9 Hyperglycemia, unspecified (principal); E03.9 Hypothyroidism, unspecified; F41.9 Anxiety disorder, unspecified; E55.9 Vitamin D deficiency, unspecified
CPT/HCPCS: 36415; 82306; 83036; 84443

== ENCOUNTER → 2021-10-05 09:34 | Outpatient (CLI) | payer OTHER, SELFPAY | PROVIDERS: PCP Family Medicine; Visit Provider Nurse Practitioner Family | DX: R07.0 Pain in throat (principal) | CPT/HCPCS: 87070 ==

== ENCOUNTER → 2021-10-12 11:16 | Outpatient (CLI) | payer OTHER, SELFPAY ==
--- NOTE | 2021-10-12 11:18 | DI.RAD.S_ITS ---
PROCEDURE: XR CHEST 2V INDICATIONS: right lung granuloma TECHNIQUE: 2 views of the chest were acquired. COMPARISON: [facility], CT, CT ABDOMEN PELVIS W CON, 09/15/2020, 14:28. [facility], CR, XR CHEST 2V, 09/05/2020, 12:33. FINDINGS: Surgical changes and devices: None. Lungs and pleura: Small right lower lobe calcified granuloma measuring 0.3 cm. Probable calcified granuloma at the left lower lobe measuring 0.2 cm. No pleural effusions or pneumothorax. Mediastinum: Mediastinal contours are normal. Heart size is normal. Bones and chest wall: No suspicious bony abnormalities. Soft tissues appear unremarkable. IMPRESSION: Small benign lower lobe calcified granuloma are suspected. Lungs are otherwise clear. If clinically indicated this could be confirmed with low-dose CT of the chest. Dictated by: Agus Linda M.D. on 10/12/2021 at 11:51 Approved by: Agus Linda M.D. on 10/12/2021 at 11:53
== END ==
LOC: RAD 11:17
PROVIDERS: PCP Family Medicine; Referring Provider Family Medicine; Visit Provider Family Medicine
DX: J84.10 Pulmonary fibrosis, unspecified (principal)
CPT/HCPCS: 71046

== ENCOUNTER → 2022-04-18 10:03 | Outpatient (CLI) | payer OTHER, SELFPAY ==
[2022-04-18 17:20] LABS: Hepatitis B Surface Antigen NEGATIVE s/c (NEGATIVE)
[2022-04-18 17:39] LABS: HIV 1 & 2 Ab/Ag 4th Gen Combo NEGATIVE (NEGATIVE); Hep C Virus Ab w/Reflex Quant NEGATIVE s/c (NEGATIVE)
[2022-04-19 04:08] LABS: HSV 2 IGG AB < 0.91 index (0.00-0.90)
[2022-04-19 11:09] LABS: RPR Screen Non Reactive (Non Reactive)
== END ==
PROVIDERS: PCP Family Medicine; Referring Provider Registered Nurse Diabetes Educator; Visit Provider Registered Nurse Diabetes Educator
DX: Z72.51 High risk heterosexual behavior (principal)
CPT/HCPCS: 36415; 86592; 86695; 86696; 86803; 87340; 87389

== ENCOUNTER → 2022-06-04 14:56 | Outpatient (CLI) | payer OTHER, SELFPAY ==
--- NOTE | 2022-06-04 14:59 | DI.MG.S_ITS ---
BILATERAL DIGITAL SCREENING MAMMOGRAM 3D/2D WITH CAD WITH AUGMENTATION: 06/04/2022 CLINICAL: Routine screening. Baseline exam. Family history of breast cancer. No prior exams were available for comparison. There are scattered areas of fibroglandular density in both breasts (category b / 25%-50% glandular tissue). Current study was also evaluated with a Computer Aided Detection (CAD) system. Bilateral breast implants are intact. No significant masses, calcifications, or other findings are seen in either breast. IMPRESSION: NEGATIVE There is no mammographic evidence of malignancy. A 1 year screening mammogram is recommended. Based on the Tyrer Cuzick model (a risk assessment model) the patient's lifetime risk is 11.5% and her 10 year risk is 1.1%. According to the ACR, ACS, and NCCN guidelines, an annual breast MRI exam along with mammogram is recommended if the patient's lifetime risk is 20% or greater. This exam was interpreted at Station ID: [id number]. NOTE: For mammograms, a report in lay terms will be sent to the patient. Approximately 15% of breast malignancies will not be visualized mammographically. In the management of a palpable breast mass, a negative mammogram must not discourage biopsy of a clinically suspicious lesion. Electronically Signed By: Agus lenz/edward:06/04/2022 17:05:43 letter sent: Normal Exam ACR BI-RADS Category 1: Negative [id number]
--- NOTE | 2022-06-04 14:59 | DI.US.S_ITS ---
PROCEDURE: US PELVIC COMPLETE INDICATIONS: DYSMENORRHEA TECHNIQUE: Real-time scanning was performed of the pelvic organs, with image documentation. Additional endovaginal scanning was necessary due to incomplete visualization of the adnexal and endometrial structures by transabdominal scanning. COMPARISON: None. FINDINGS: Uterus: Uterus normal in size. The myometrium is markedly heterogeneous. The endometrium measures 4 mm combined thickness. Cervical nabothian cysts noted. Ovaries: Normal right ovary. Left ovary obscured by bowel gas. Other: No pathologic free abdominal or pelvic fluid. IMPRESSION: Suspected uterine adenomyosis. We strive to produce accurate, complete, and clear reports of imaging services. To assist us in improving patient care, this report was composed using standard report templates and voice recognition software. Therefore, it may contain abnormal punctuation, insertions and/or omissions. Occasional wrong-word or sound-alike substitutions may occur. Though we review the report and make efforts to correct it, we do recommend that the report be read carefully in proper context to recognize any text inaccuracies. Dictated by: Kwan Goodman M.D. on 06/04/2022 at 16:48 Approved by: Kwan Goodman M.D. on 06/04/2022 at 16:50
== END ==
PROVIDERS: PCP Family Medicine; Referring Provider Registered Nurse Diabetes Educator; Visit Provider Registered Nurse Diabetes Educator
DX: N94.6 Dysmenorrhea, unspecified (principal); Z80.3 Family history of malignant neoplasm of breast; Z12.31 Encounter for screening mammogram for malignant neoplasm of breast
CPT/HCPCS: 76830; 76856; 77063; 77067

== ENCOUNTER → 2022-08-30 07:18 | Outpatient (CLI) | payer OTHER, SELFPAY ==
[2022-08-30 08:42] LABS: Cholesterol 228 mg/dL (140-199); HDL Cholesterol 55 mg/dL (40-60); LDL Cholesterol Calculated 156 mg/dL (<100); Triglycerides 87 mg/dL (35-150)
[2022-08-30 09:16] LABS: TSH w/ Reflex to FT4 1.39 uIU/mL (0.47-4.68)
[2022-08-30 09:21] LABS: Vitamin D 25 Hydroxy (D3) 67.3 ng/mL (30.0-100.0)
== END ==
PROVIDERS: PCP Family Medicine; Referring Provider Family Medicine; Visit Provider Family Medicine
DX: E03.9 Hypothyroidism, unspecified (principal); R73.9 Hyperglycemia, unspecified
CPT/HCPCS: 36415; 80061; 82306; 84443

== ENCOUNTER → 2022-09-13 08:01 | Outpatient (CLI) | payer OTHER, SELFPAY ==
[2022-09-13 08:36] LABS: Appearance Urine UA CLEAR; Bilirubin Urine UA NEGATIVE (NEGATIVE); Color Urine UA YELLOW; Glucose Urine UA NEGATIVE (Negative); Ketones Urine UA NEGATIVE (NEGATIVE); Leukocyte Esterase Urine UA NEGATIVE (NEGATIVE); Nitrite Urine UA NEGATIVE (Negative); Occult Blood Urine UA TRACE-INTACT (Negative); Protein Urine UA NEGATIVE (Negative); Specific Gravity Urine UA <=1.005 (1.000-1.035); Urobilinogen Urine UA 0.2 E.U./dL (0.2)
[2022-09-13 08:39] LABS: Bacteria Urine None Seen; Culture Indicated Urine Cult Not Indicated; RBC Urine 1-5/HPF (0-5/HPF); WBC Urine None Seen (0-5/HPF)
--- NOTE | 2022-09-13 12:15 | DI.RAD.S_ITS ---
PROCEDURE: XR KUB INDICATIONS: Hematuria TECHNIQUE: One view of the abdomen acquired. COMPARISON: None. FINDINGS: Surgical changes and devices: None. Bowel: Bowel gas pattern is normal. Soft tissues: Multiple calcifications are projected over the pelvis suggesting pelvic phleboliths, although bladder calculi or distal ureteral calculi cannot be excluded. No suspicious calcifications within the abdomen. Bones: No suspicious bony lesions. IMPRESSION: 1. Probable bilateral pelvic phleboliths although distal ureteral calculi or bladder calculi cannot be excluded. 2. No acute intra-abdominal findings. Dictated by: Bisi Osorio M.D. on 09/13/2022 at 15:49 Approved by: Bisi Osorio M.D. on 09/13/2022 at 15:51
[2022-09-13 14:59] LABS: Urine N gonorrhoeae NOT DETECTED
[2022-09-13 15:18] LABS: Urine Chlamydia NOT DETECTED
[2022-09-14 05:38] LABS: HSV 2 IGG AB < 0.91 index (0.00-0.90)
[2022-09-14 07:13] LABS: RPR Screen Non Reactive (Non Reactive)
[2022-09-16 17:32] LABS: Hepatitis B Surface Antigen NEGATIVE s/c (NEGATIVE)
[2022-09-16 17:43] LABS: HIV 1 & 2 Ab/Ag 4th Gen Combo NEGATIVE (NEGATIVE); Hep C Virus Ab w/Reflex Quant NEGATIVE s/c (NEGATIVE)
== END ==
LOC: LAB 11:40 → RAD 12:14
PROVIDERS: Nurse Practitioner Family; PCP Family Medicine; Referring Provider Family Medicine; Visit Provider Family Medicine
DX: N80.03 Adenomyosis of the uterus (principal); R30.0 Dysuria; R35.0 Frequency of micturition; Z87.440 Personal history of urinary (tract) infections; N39.0 Urinary tract infection, site not specified; R31.9 Hematuria, unspecified; R10.2 Pelvic and perineal pain; N32.89 Other specified disorders of bladder
CPT/HCPCS: 36415; 74018; 81001; 86592; 86695; 86696; 86803; 87086; 87210; 87340; 87389; 87491; 87591

== ENCOUNTER → 2022-09-13 11:40 | Outpatient (CLI) | payer OTHER, SELFPAY | PROVIDERS: PCP Family Medicine; Visit Provider Nurse Practitioner Family | DX: N32.89 Other specified disorders of bladder (principal) | CPT/HCPCS: 87210 ==

== ENCOUNTER 2022-09-16 17:19 | Emergency (ER) | payer OTHER, SELFPAY ==
[2022-09-16 17:32] VITALS: BP 136/74; PULSE 87; RESP 16; TEMP 37.1; O2SAT 100; BMI 23.0
[2022-09-16 18:19] LABS: Add Manual Diff / Slide Review NO; Basophils Absolute Auto 0 /uL (0-100); Basophils Percent Auto 0.7 % (0-2); Eosinophils Absolute Auto 200 /uL (0-450); Eosinophils Percent Auto 2.8 % (2-4); Hematocrit 33.4 % (36-46); Hemoglobin 11.1 g/dL (12.0-16.0); Lymphocytes Absolute Auto 2900 /uL (1100-4500); Lymphocytes Percent Auto 44.5 % (25-40); Mean Corpuscular HGB Conc 33.1 % (30-36); Mean Corpuscular Volume 81.5 fL (80-100); Monocytes Absolute Auto 500 /uL (0-900); Monocytes Percent Auto 7.7 % (3-14); Neutrophils Absolute Auto 2900 /uL (1500-7000); Neutrophils Percent Auto 44.3 % (50-75); Platelet Count 216 X10^3/uL (150-400); Red Blood Cell Count 4.09 X10^6/uL (4.0-5.2); Red Cell Distribution Width 14.5 % (11.6-14.8); White Blood Cell Count 6.5 X10^3/uL (4.5-11.0)
[2022-09-16 18:22] LABS: Bacteria Urine Occasional (0-1); RBC Urine 30-100/HPF (0-5/HPF); Squamous Epithelial Cell Urine 1-5 /HPF (0-5/HPF); WBC Urine 5-10/HPF (0-5/HPF)
[2022-09-16 18:23] LABS: Culture Indicated Urine Specimen Cultured
[2022-09-16 18:54] LABS: Alanine Aminotransferase 21 IU/L (<35); Albumin 4.4 g/dL (3.5-5.0); Albumin Globulin Ratio 1.3 (1.0-2.8); Alkaline Phosphatase 44 U/L (38-126); Aspartate Aminotransferase 34 IU/L (14-36); BUN Creatinine Ratio 20.8 (6-22); Bilirubin Total 0.5 mg/dL (0.2-1.3); Blood Urea Nitrogen 10 mg/dL (7-17); Calcium 8.6 mg/dL (8.4-10.2); Carbon Dioxide 26 mmol/L (22-32); Chloride 102 mmol/L (98-107); Estimated Glomerular Filt Rate > 60 mL/min (>60); Globulin 3.4 g/dL (1.7-4.1); Glucose 89 mg/dL (70-100); Lipase 116 U/L (23-300); Sodium 135 mmol/L (137-145); Total Protein 7.8 g/dL (6.3-8.2)
[2022-09-16 18:56] LABS: HEMOLYSIS 52 (0-50)
[2022-09-16 18:57] LABS: Potassium 4.5 mmol/L (3.4-5.1)
--- NOTE | 2022-09-16 20:31 | ED.ABDPAIN ---
HPI - Abdominal Pain General Chief Complaint: Urogenital-Female Stated Complaint: R/O Kidney stones Time Seen by Provider: 09/16/22 20:29 Source: patient Mode of arrival: Ambulatory History of Present Illness HPI narrative: Patient is a 36-year-old female who presents today with painful frequent urination. She was treated for UTI by [facility] with Macrobid for 5 days. She stop the Macrobid on the she was then seen at walk-in clinic with hematuria on September 13. Urine culture from that visit did not show any growth. She continues to have pain and discomfort and pressure in her pelvic region and urethra. She denies any flank pain. No fever no nausea or vomiting. She just generally does not feel well. Vitals are stable. Related Data Home Medications Medication Instructions Recorded Confirmed ergocalciferol (vitamin D2) 1,250 1,250 mcg PO QWEEK 09/06/20 08/29/22 mcg (50,000 unit) capsule levothyroxine 50 mcg capsule 50 mcg PO DAILY 09/06/20 08/29/22 Previous Rx's Medication Instructions Recorded epinephrine 0.3 mg/0.3 mL 0.3 mg (0.3 mL) IM Q5-15M PRN 10/12/21 injection, auto-injector anaphylaxis #2 ea ondansetron 4 mg disintegrating See Rx Instructions .Route 10/12/21 tablet .COMPLEX #7 tabs phenazopyridine 200 mg tablet 200 mg PO TID PRN pain 6 doses #6 10/12/21 (Pyridium) tabs albuterol sulfate 90 mcg/actuation 2 puff inhalation Q6H PRN sob #8.5 12/14/21 aerosol inhaler grams ibuprofen 800 mg tablet 800 mg PO TID PRN pain #90 tabs 02/27/22 cyclobenzaprine 5 mg tablet 5 mg PO TID PRN muscle spasm #30 07/24/22 tabs atorvastatin 20 mg tablet 20 mg PO DAILY #90 tabs 09/03/22 lorazepam 0.5 mg tablet (Ativan) 0.5 mg PO BID PRN anxiety #20 tabs 09/03/22 cephalexin 500 mg capsule 500 mg PO BID 4 days #8 caps 09/16/22 hydrocodone 5 mg-acetaminophen 325 1 tab PO Q6H PRN pain #10 tabs 09/16/22 mg tablet Allergies Allergy/AdvReac Type Severity Reaction Status Date / Time No Known Drug Allergies Allergy Verified 08/29/22 13:32 walnuts Allergy Severe my throat Uncoded 08/29/22 13:32 swells up Review of Systems Review of Systems ROS Unobtainable: All systems reviewed & are unremarkable except as noted in HPI and below Patient History Medical History Anti-polysaccharide antibody deficiency Anxiety Elevated liver enzymes Family history of breast cancer in mother Hyperglycemia Hypothyroidism Lung granuloma Vitamin D deficiency Social History Smoking Status: Never smoker Smoking Status: Never smoker alcohol intake frequency: holidays/special occasions only Substance Use Type: does not use Exam Initial Vital Signs Initial Vital Signs: Vital Signs Temperature 98.7 F 09/16/22 17:32 Pulse Rate 87 09/16/22 17:32 Respiratory Rate 16 09/16/22 17:32 Blood Pressure 136/74 09/16/22 17:32 Pulse Oximetry 100 09/16/22 17:32 Oxygen Delivery Method Room Air 09/16/22 17:32 GENERAL: Alert well-appearing 36-year-old female appears slightly uncomfortable HEENT: Head atraumatic,EOMI, pupils reactive, face symmetric, moist mucous membranes CARDIOVASCULAR: Regular rate and rhythm without murmurs, rubs or gallops. RESPIRATORY: Breath sounds equal bilaterally, no wheezes rales or rhonchi. ABDOMEN: Soft, mild suprapubic pain no guarding no rebound : No CVA tenderness EXTREMITIES: Normal range of motion, no clubbing or edema. Neurovascularly intact NEUROLOGICAL: Alert and oriented x4. SKIN: Warm, dry, no laceration, no petechiae, no rashes or lesions. Course Orders Ordered: ED Orders 09/16/22 20:37 CT kidney ureter bladder (KUB) Stat 09/17/22 00:14 Stone analysis Stat Discontinued Medications Hydrocodone Bitart/Acetaminophen (Hydrocodone/Acet 5/325 Prepack) 1 bottle MISC SEEINSTR ONE Stop: 09/16/22 22:22 Last Admin: 09/16/22 22:39 Dose: 1 bottle Documented By: ROLDAN Ceftriaxone Sodium 1,000 mg/ (Sodium Chloride) 100 mls @ 200 mls/hr IV NOW ONE Stop: 09/16/22 20:38 Last Infusion: 09/16/22 22:35 Dose: 0 mls/hr Documented By: Admin: 09/16/22 21:30 Dose: 200 mls/hr Documented By: ROLDAN Ketorolac Tromethamine (Ketorolac 30 Mg/Ml Vial) 15 mg IV NOW ONE Stop: 09/16/22 20:38 Last Admin: 09/16/22 21:28 Dose: 15 mg Documented By: ROLDAN Ondansetron HCl (Ondansetron 4 Mg Odt) 4 mg PO NOW PRN PRN Reason: Nausea And Vomiting Ondansetron HCl (Ondansetron 4 Mg/2 Ml Inj) 4 mg IV NOW PRN PRN Reason: Nausea And Vomiting Vital Signs Vital signs: Vital Signs - 8 hr 09/16/22 22:42 Pulse Rate 78 Respiratory Rate 18 Blood Pressure 121/74 Pulse Oximetry 98 Oxygen Delivery Method Room Air MDM - Abdominal Pain Lab Data 09/16/22 18:02 09/16/22 18:02 Labs: Lab Results 09/16/22 09/16/22 09/16/22 Range/Units 17:35 18:02 18:02 WBC 6.5 (4.5-11.0) X10^3/uL RBC 4.09 (4.0-5.2) X10^6/uL Hgb 11.1 L (12.0-16.0) g/dL Hct 33.4 L (36-46) % MCV 81.5 (80-100) fL MCH 27.0 (26-34) PG MCHC 33.1 (30-36) % RDW 14.5 (11.6-14.8) % Plt Count 216 (150-400) X10^3/uL Neut % (Auto) 44.3 L (50-75) % Lymph % (Auto) 44.5 H (25-40) % [place] % (Auto) 7.7 (3-14) % Eos % (Auto) 2.8 (2-4) % Baso % (Auto) 0.7 (0-2) % Neut # (Auto) 2900 (5450-9437) /uL Lymph # (Auto) 2900 (2827-0953) /uL [place] # (Auto) 500 (0-900) /uL Eos # (Auto) 200 (0-450) /uL Baso # (Auto) 0 (0-100) /uL Sodium 135 L (137-145) mmol/L Potassium 4.5 (3.4-5.1) mmol/L Chloride 102 (98-107) mmol/L Carbon Dioxide 26 (22-32) mmol/L BUN 10 (7-17) mg/dL Creatinine 0.48 L (0.52-1.04) mg/dL Estimated GFR > 60 (>60) mL/min BUN/Creatinine Ratio 20.8 (6-22) Glucose 89 (70-100) mg/dL Calcium 8.6 (8.4-10.2) mg/dL Total Bilirubin 0.5 (0.2-1.3) mg/dL AST 34 (14-36) IU/L ALT 21 (<35) IU/L Alkaline Phosphatase 44 (38-126) U/L Total Protein 7.8 (6.3-8.2) g/dL Albumin 4.4 (3.5-5.0) g/dL Globulin 3.4 (1.7-4.1) g/dL Albumin/Globulin Ratio 1.3 (1.0-2.8) Lipase 116 (23-300) U/L Urine RBC 30-100/hpf H (0-5/HPF) Urine WBC 5-10/hpf H (0-5/HPF) Ur Squamous Epith Cells 1-5 /hpf (0-5/HPF) Urine Bacteria Occasional (0-1) (None) Ur Culture Indicated? Specimen cultured Point of care testing: Point of Care Testing Test Results Negative Urine Dip Bedside Urine Glucose Negative Bedside Urine Bilirubin - Negative Bedside Urine Ketone - Negative Urine Specific [place] 1.010 Bedside Urine Occult Blood +++ Bedside Urine pH 6.0 Bedside Urine Protein +/- 15 Bedside Urine Urobilinogen - Negative Bedside Urine Nitrite - Negative Bedside Urine Leukocytes + [address] scan - abdomen/pelvis: Radiologist's Impression: PROCEDURE:? CT KIDNEY URETER BLADDER (KUB) ? INDICATIONS:? hematuria ? TECHNIQUE:? Axial sections were acquired from the lung bases to the pubic symphysis.? Coronal and sagittal reformats were performed.? For radiation dose reduction, the following was used: ?automated exposure control, adjustment of mA and/or kV according to patient size.? ? COMPARISON:? None. ? FINDINGS:? Image quality:? Excellent.? ? Lung bases:? There is minimal atelectasis.? ? Heart:? Heart is normal in size.? There is a small hiatal hernia. ? URINARY: Right Kidney and Ureter: ? There is a 0.2 cm nonobstructing right renal stone.? No hydronephrosis.? No hydroureter.? ? Left Kidney and Ureter: ? There are 2 nonobstructing left renal stones, measuring up to 0.4 cm and 0.3 cm.? No hydronephrosis.? No hydroureter. ? Bladder:? Normal wall thickness. No stones. ? ? ? ABDOMEN: Liver:? Noncontrast evaluation of the liver demonstrates no discrete? mass. Gallbladder:? Within normal limits without calcified gallstones.? ? Biliary ducts:? No biliary ductal dilatation.? ? Pancreas:? Unremarkable.? ? Spleen:? Normal in size.? ? Adrenal Glands:? No adrenal nodules.? ? ? Stomach and Bowel:? Stomach, small bowel loops, and colon are normal in caliber and wall thickness.? There are postsurgical changes along the stomach.? No pericecal inflammatory changes to suggest appendicitis. Peritoneum:? No abnormal intraperitoneal fluid.? No free air.? ? Ventral Wall: ? No hernia.? Abdominal Nodes:? No retroperitoneal or mesenteric adenopathy by size criteria.? Vessels:? Aorta and inferior vena cava are normal in size.? ? PELVIS: Pelvic Organs:? Unremarkable.? ? Pelvic Nodes: No enlarged lymph nodes.? Miscellaneous: No inguinal hernias identified. ? ? ? Bones:? Visualized osseous structures demonstrate no suspicious focal lesions. IMPRESSION:? ? 1. Bilateral nephrolithiasis without hydronephrosis.? ? ? Dictated by: Antonio Ch M.D. on 09/16/2022 at 21:53 ?? MDM Narrative Medical decision making narrative: Patient healthy 36-year-old female presenting today with symptoms with UTI however she was just treated with Macrobid and a urine culture couple days later did not show any growth. She continues to have hematuria and symptoms. She is concerned that she might have a kidney stone. She actually went to the restroom and passed a large kidney stone. That stone has been sent down to lab for pathology. She reports that she drinks protein shakes daily and is concerned that that might be causing it. She also has leukocytes and hematuria in her urine she is given a dose Rocephin and Toradol here in the ED which seemed to help. She is no signs of sepsis she is afebrile without leukocytosis. No electrolyte abnormality or JACQUELINE. CT does not show any active hydroureter or ureteral stone however she does have bilateral renal stones. At this time no indication for admission. I think with leukocytes and hematuria reasonable to continue some antibiotics. However suspect her discomfort was probably from kidney stone. She is still in a bit of pain she has not had much sleep over last 2 weeks. Will give her some hydrocodone. Hemodynamically stable, no evidence of severe sepsis does not meet admission criteria. Discharge Plan Departure Patient Disposition: Home Clinical Impression: Kidney stones, UTI (urinary tract infection) Instructions: DI for Kidney Stones, DI for Urinary Tract Infection (UTI) Activity Restrictions/Additional Instructions: *You have been diagnosed with kidney stone and UTI *What to do: At this time I really hope you start feeling better now if passed her kidney stone. Will keep you on antibiotics until her culture comes back this time. Expect to be sore for the next couple days this is typical from kidney stones. Ibuprofen generally works really well for this. *Continue to take medications as directed--> [facility] Mot[facility] 600 mg every 6 hours if needed for mped-hy-vypfxoxe pain [place] 1 tablet every 6 hours if needed for severe pain Keflex 500 mg twice a day for 4 days *Follow up with your primary care provider in 2-3 days or call [phone] *Return to ER if you should have increasing pain nausea vomiting fever or any new, worsening or concerning symptoms CONTROLLED SUBSTANCE DISCHARGE (Narcotoic/benzodiazepine/Flexeril/Phenergan) 1. You have been prescribed narcotic medications, it does have acetaminophen/Tylenol/paracetamol in it, DO NOT TAKE MORE THAN 4,00mg in 24 hours of Tylenol. TRAMADOL DOES NOT CONTAIN TYLENOL 2. Please understand that we cannot provide further refills of narcotics, benzodiazepines or controlled substances through the ED and her pain management will need to be through your provider. 3. While on these medications you cannot drive or operate heavy machinery. 4. You cannot sign legal documents or perform any duties such as this. 5. As long as you're taking opiate pain medications he should also be taking a stool softener such as Colace, Dulcolax, MiraLAX or prune juice, to help avoid constipation. Prescriptions: New hydrocodone-acetaminophen 5-325 mg tablet 1 tab PO Q6H PRN (Reason: pain) Qty: 10 0RF cephalexin 500 mg capsule 500 mg PO BID 4 Days Qty: 8 0RF No Action ondansetron 4 mg tablet,disintegrating See Rx Instructions .ROUTE .COMPLEX Qty: 7 0RF Dose Instruction: dissolve 1 tablet ON TONGUE four times a day if needed for nausea OR vomiting Rx Instructions: dissolve 1 tablet ON TONGUE four times a day if needed for nausea OR vomiting albuterol sulfate 90 mcg/actuation HFA aerosol inhaler 2 puff inhalation Q6H PRN (Reason: sob) Qty: 8.5 3RF atorvastatin 20 mg tablet 20 mg PO DAILY Qty: 90 0RF lorazepam [Ativan] 0.5 mg tablet 0.5 mg PO BID PRN (Reason: anxiety) Qty: 20 0RF levothyroxine 50 mcg capsule 50 mcg PO DAILY ergocalciferol (vitamin D2) 1,250 mcg (50,000 unit) capsule 1,250 mcg PO QWEEK epinephrine 0.3 mg/0.3 mL auto-injector 0.3 mg IM Q5-15M PRN (Reason: anaphylaxis) Qty: 2 3RF Rx Instructions: do not exceed 3 doses per episode phenazopyridine [Pyridium] 200 mg tablet 200 mg PO TID PRN (Reason: pain) Qty: 6 2RF ibuprofen 800 mg tablet 800 mg PO TID PRN (Reason: pain) Qty: 90 5RF Rx Instructions: with food cyclobenzaprine 5 mg tablet 5 mg PO TID PRN (Reason: muscle spasm) Qty: 30 3RF Referrals: Caleb Esposito MD [Primary Care Provider] - Stand Alone Forms: Patient Portal/API
--- NOTE | 2022-09-16 20:37 | DI.CT.S_ITS ---
PROCEDURE: CT KIDNEY URETER BLADDER (KUB) INDICATIONS: hematuria TECHNIQUE: Axial sections were acquired from the lung bases to the pubic symphysis. Coronal and sagittal reformats were performed. For radiation dose reduction, the following was used: automated exposure control, adjustment of mA and/or kV according to patient size. COMPARISON: None. FINDINGS: Image quality: Excellent. Lung bases: There is minimal atelectasis. Heart: Heart is normal in size. There is a small hiatal hernia. URINARY: Right Kidney and Ureter: There is a 0.2 cm nonobstructing right renal stone. No hydronephrosis. No hydroureter. Left Kidney and Ureter: There are 2 nonobstructing left renal stones, measuring up to 0.4 cm and 0.3 cm. No hydronephrosis. No hydroureter. Bladder: Normal wall thickness. No stones. ABDOMEN: Liver: Noncontrast evaluation of the liver demonstrates no discrete mass. Gallbladder: Within normal limits without calcified gallstones. Biliary ducts: No biliary ductal dilatation. Pancreas: Unremarkable. Spleen: Normal in size. Adrenal Glands: No adrenal nodules. Stomach and Bowel: Stomach, small bowel loops, and colon are normal in caliber and wall thickness. There are postsurgical changes along the stomach. No pericecal inflammatory changes to suggest appendicitis. Peritoneum: No abnormal intraperitoneal fluid. No free air. Ventral Wall: No hernia. Abdominal Nodes: No retroperitoneal or mesenteric adenopathy by size criteria. Vessels: Aorta and inferior vena cava are normal in size. PELVIS: Pelvic Organs: Unremarkable. Pelvic Nodes: No enlarged lymph nodes. Miscellaneous: No inguinal hernias identified. Bones: Visualized osseous structures demonstrate no suspicious focal lesions. IMPRESSION: 1. Bilateral nephrolithiasis without hydronephrosis. Dictated by: Antonio Ch M.D. on 09/16/2022 at 21:53 Approved by: Antonio Ch M.D. on 09/16/2022 at 22:08
[2022-09-16] MEDS: KETOROLAC 30 MG/ML VIAL 15 MG IV (21:28)
[2022-09-16] MEDS: cefTRIAXone 1,000 MG in SODIUM CHLORIDE 0.9% 100 ML 200 MG IV (21:30)
[2022-09-16] MEDS: HYDROCODONE/ACET 5/325 PREPACK 1 BOTTLE MISC (22:39)
[2022-09-16 22:42] VITALS: BP 121/74; PULSE 78; RESP 18; O2SAT 98
[2022-09-24 17:59] LABS: Ca oxalate dihydrate 80 % (.); Ca oxalate monohydr 20 % (.); Size 5x8 mm (.); Stone Analysis Source Kidney (.)
== END 2022-09-16 22:48 | disposition home or self-care (01) ==
PROVIDERS: Emergency Medicine; Emergency Provider Emergency Medicine; PCP Family Medicine
DX: N20.0 Calculus of kidney (principal); N39.0 Urinary tract infection, site not specified
CPT/HCPCS: 36415; 74176; 80053; 81003; 81015; 81025; 82365; 83690; 85025; 87086; 96365; 96375; 99284; J0696; J1885

== ENCOUNTER → 2023-01-08 19:38 | Outpatient (CLI) | payer OTHER, SELFPAY ==
--- NOTE | 2023-01-08 | DI.MRI.S_ITS ---
PROCEDURE: MR LUMBAR SPINE WO CON INDICATIONS: lumbar radiculopathy TECHNIQUE: Noncontrast sagittal T1 spin echo and T2 fast echo, sagittal STIR, and T2 fast spin echo through the lumbar spine. In cases with scoliosis, additional coronal T2 fast spin echo may be performed. COMPARISON: None. FINDINGS: Image quality: Excellent. Alignment and Curvature: Mild straightening of normal lumbar lordosis. No spondylolisthesis. Bone Marrow: Marrow is of normal overall signal. No acute vertebral body compression fractures. Spinal Cord: Conus medullaris terminates at the L2 level. Visualized cord demonstrates normal signal and size. Paraspinous Soft Tissues: No paravertebral masses. T12-L1: No central canal or neural foraminal stenosis. Mild facet arthropathy. L1-L2: Mild facet arthropathy and thickening of ligamentum flavum. No central canal or neural foraminal stenosis. L2-L3: Mild facet arthropathy and thickening of ligamentum flavum. No central canal or neural foraminal stenosis. L3-L4: Mild facet arthropathy. No central canal or neural foraminal stenosis. L4-L5: Disc desiccation and mild disc height loss with an annular tear and small posterior disc bulge. Facet arthropathy and thickening of the ligamentum flavum. No central canal or neural foraminal stenosis. L5-S1: Disc desiccation and small central disc protrusion. Facet arthropathy. No central canal or neural foraminal stenosis. IMPRESSION: Mild degenerative changes of the lumbar spine, most pronounced at L4-L5 as described above. No significant central canal or neural foraminal stenosis. Dictated by: Renato Olivas M.D. on 01/09/2023 at 9:08 Approved by: Renato Olivas M.D. on 01/09/2023 at 9:13
== END ==
PROVIDERS: PCP Family Medicine; Referring Provider Student in an Organized Health Care Education/Training Program; Visit Provider Student in an Organized Health Care Education/Training Program
DX: M47.26 Other spondylosis with radiculopathy, lumbar region (principal)
CPT/HCPCS: 72148

== ENCOUNTER → 2023-05-22 07:22 | Outpatient (CLI) | payer OTHER, SELFPAY ==
[2023-05-22 08:11] LABS: Add Manual Diff / Slide Review NO; Basophils Absolute Auto 0 /uL (0-100); Basophils Percent Auto 0.6 % (0-2); Eosinophils Absolute Auto 100 /uL (0-450); Eosinophils Percent Auto 1.5 % (2-4); Hematocrit 31.3 % (36-46); Hemoglobin 10.4 g/dL (12.0-16.0); Lymphocytes Absolute Auto 2300 /uL (1100-4500); Lymphocytes Percent Auto 35.4 % (25-40); Mean Corpuscular HGB Conc 33.2 % (30-36); Mean Corpuscular Hemoglobin 25.5 PG (26-34); Mean Corpuscular Volume 76.8 fL (80-100); Monocytes Absolute Auto 500 /uL (0-900); Monocytes Percent Auto 8.1 % (3-14); Neutrophils Absolute Auto 3600 /uL (1500-7000); Neutrophils Percent Auto 54.4 % (50-75); Platelet Count 213 X10^3/uL (150-400); Red Blood Cell Count 4.08 X10^6/uL (4.0-5.2); Red Cell Distribution Width 15.3 % (11.6-14.8); White Blood Cell Count 6.5 X10^3/uL (4.5-11.0)
[2023-05-22 08:30] LABS: Alanine Aminotransferase 24 IU/L (<35); Albumin 4.1 g/dL (3.5-5.0); Albumin Globulin Ratio 1.4 (1.0-2.8); Alkaline Phosphatase 46 U/L (38-126); Aspartate Aminotransferase 30 IU/L (14-36); BUN Creatinine Ratio 31.5 (6-22); Bilirubin Total 0.5 mg/dL (0.2-1.3); Blood Urea Nitrogen 17 mg/dL (7-17); Calcium 9.4 mg/dL (8.4-10.2); Carbon Dioxide 25 mmol/L (22-32); Chloride 103 mmol/L (98-107); Cholesterol 212 mg/dL (140-199); Estimated Glomerular Filt Rate > 60 mL/min (>60); Glucose 91 mg/dL (70-100); HDL Cholesterol 64 mg/dL (40-60); HEMOLYSIS < 15 (0-50); LDL Cholesterol Calculated 134 mg/dL (<100); Potassium 4.4 mmol/L (3.4-5.1); Sodium 136 mmol/L (137-145); Total Protein 7.1 g/dL (6.3-8.2); Triglycerides 72 mg/dL (35-150)
[2023-05-22 08:43] LABS: Vitamin D 25 Hydroxy (D3) 63.3 ng/mL (30.0-100.0)
[2023-05-22 08:56] LABS: TSH w/ Reflex to FT4 1.92 uIU/mL (0.47-4.68)
[2023-05-22 12:52] LABS: Ferritin 5 ng/mL (6-137)
[2023-05-22 22:12] LABS: HEMOLYSIS < 15 (0-50); Iron 40 ug/dL (37-170)
[2023-05-22 22:23] LABS: Percent Iron Saturation 9 % (15-50); Total Iron Binding Capacity 422 ug/dL (265-497); Transferrin 355 mg/dL (206-381)
[2023-05-23 07:10] LABS: Apolipoprotein B 100 mg/dL (<90)
== END ==
PROVIDERS: PCP Family Medicine; Referring Provider Family Medicine; Visit Provider Family Medicine
DX: F41.9 Anxiety disorder, unspecified (principal); R73.9 Hyperglycemia, unspecified; E03.9 Hypothyroidism, unspecified; D80.6 Antibody deficiency with near-normal immunoglobulins or with hyperimmunoglobulinemia; E55.9 Vitamin D deficiency, unspecified; R74.8 Abnormal levels of other serum enzymes; N94.6 Dysmenorrhea, unspecified
CPT/HCPCS: 36415; 80053; 80061; 82172; 82306; 82728; 83540; 83550; 84443; 85025

== ENCOUNTER → 2023-06-10 09:30 | Outpatient (CLI) | payer OTHER, SELFPAY ==
--- NOTE | 2023-06-10 09:31 | DI.RAD.S_ITS ---
PROCEDURE: XR KUB INDICATIONS: kidney stones TECHNIQUE: One view of the abdomen acquired. COMPARISON: [facility], CR, XR KUB, 09/13/2022, 12:26. FINDINGS: Surgical changes and devices: None. Bowel: Bowel gas pattern is normal. Significant colonic stool. Soft tissues: No suspicious abdominal calcifications. Visualized solid organ contours appear normal in size. Pelvic phleboliths. Bones: No suspicious bony lesions. IMPRESSION: No visualized calcifications overlying the renal shadows. Dictated by: Ana Paula Bowman M.D. on 06/10/2023 at 14:28 Approved by: Ana Paula Bowman M.D. on 06/10/2023 at 14:29
== END ==
PROVIDERS: PCP Family Medicine; Referring Provider Family Medicine; Visit Provider Family Medicine
DX: N20.0 Calculus of kidney (principal)
CPT/HCPCS: 74018

== ENCOUNTER 2023-06-11 15:27 | Emergency (ER) | payer OTHER, SELFPAY ==
[2023-06-11] VITALS (10 sets, daily range): BP systolic 101–131; BP diastolic 56–79; PULSE 88–146; RESP 13–30; TEMP 36.3; O2SAT 96–100; BMI 23.0
[2023-06-11] MEDS: FAMOTIDINE 20 MG/2 ML VIAL IV (15:58)
[2023-06-11] MEDS: EPINEPHrine 1 MG/ML 0.5 MG IM (15:58)
--- NOTE | 2023-06-11 16:04 | ED.ALLEREA ---
HPI - Allergic Reaction General Chief complaint: Allergic Reaction Stated complaint: possible allergic reaction Time Seen by Provider: 06/11/23 15:44 Source: patient Mode of arrival: Family Vehicle History of Present Illness HPI narrative: Patient 37-year-old female history of anxiety iron deficiency anemia presenting today after her 1st iron infusion. She feels like her chest is tight on throat is closing and that she can not breathe. She is quite tachycardic. Still able to speak. 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 Related Data Home Medications Medication Instructions Recorded Confirmed ergocalciferol (vitamin D2) 1,250 1,250 mcg PO QWEEK 09/06/20 03/11/23 mcg (50,000 unit) capsule levothyroxine 50 mcg capsule 50 mcg PO DAILY 09/06/20 03/11/23 hydrocodone 10 mg-acetaminophen 1 tab PO Q8H PRN 03/11/23 03/11/23 325 mg tablet floradex PO iron suplement 05/28/23 Previous Rx's Medication Instructions Recorded epinephrine 0.3 mg/0.3 mL 0.3 mg (0.3 mL) IM Q5-15M PRN 10/12/21 injection, auto-injector anaphylaxis #2 ea ondansetron 4 mg disintegrating See Rx Instructions .Route 10/12/21 tablet .COMPLEX #7 tabs phenazopyridine 200 mg tablet 200 mg PO TID PRN pain 6 doses #6 10/12/21 (Pyridium) tabs albuterol sulfate 90 mcg/actuation 2 puff inhalation Q6H PRN sob #8.5 12/14/21 aerosol inhaler grams ibuprofen 800 mg tablet 800 mg PO TID PRN pain #90 tabs 02/27/22 atorvastatin 20 mg tablet 20 mg PO DAILY #90 tabs 11/26/22 lorazepam 0.5 mg tablet 0.5 mg PO BID PRN anxiety #90 tabs 04/04/23 cyclobenzaprine 5 mg tablet 5 mg PO TID PRN muscle spasm #30 04/09/23 tabs prednisone 20 mg tablet 40 mg (2 x 20 mg) PO DAILY #6 tabs 06/11/23 Allergies Allergy/AdvReac Type Severity Reaction Status Date / Time walnuts Allergy Severe my throat Uncoded 03/11/23 11:32 swells up Patient History Medical History (Updated 06/11/23 @ 17:40 by Kimmie Petty DO) Iron deficiency anemia Family history of breast cancer in mother Anxiety Hyperglycemia Hypothyroidism Anti-polysaccharide antibody deficiency Vitamin D deficiency Elevated liver enzymes Lung granuloma Surgical History (Updated 05/30/23 @ 14:43 by Caleb Esposito MD) History of gastric bypass Social History Smoking Status: Never smoker Smoking Status: Never smoker alcohol intake frequency: holidays/special occasions only Substance Use Type: does not use Exam Initial Vital Signs Initial Vital Signs: Vital Signs Temperature 97.4 F L 06/11/23 15:27 Pulse Rate 146 H 06/11/23 15:27 Respiratory Rate 20 06/11/23 15:27 Blood Pressure 109/64 06/11/23 15:27 Pulse Oximetry 99 06/11/23 15:27 Oxygen Delivery Method Room Air 06/11/23 15:27 GENERAL: Alert 37-year-old female quite anxious. HEENT: Head atraumatic,EOMI, pupils reactive, face symmetric, moist mucous membranes CARDIOVASCULAR: Tachycardic regular RESPIRATORY: Breath sounds equal bilaterally, no wheezes rales or rhonchi. ABDOMEN: Soft, nontender. Normoactive bowel sounds all 4 quadrants. No guarding or rebound. : No CVA tenderness EXTREMITIES: Normal range of motion, no clubbing or edema. Neurovascularly intact NEUROLOGICAL: Alert and oriented x4.Normal gait and speech. SKIN: Warm, dry, no laceration, no petechiae, no rashes or lesions. Course Orders Ordered: Discontinued Medications Diphenhydramine HCl (Diphenhydramine 50 Mg/Ml Vial) 25 mg IV NOW ONE Stop: 06/11/23 15:46 Last Admin: 06/11/23 16:07 Dose: 25 mg Documented By: MPO Epinephrine HCl (Epinephrine 1 Mg/Ml) 0.5 mg IM NOW ONE Stop: 06/11/23 16:16 Last Admin: 06/11/23 15:58 Dose: 0.5 mg Documented By: MPO Famotidine (Famotidine 20 Mg/2 Ml Vial) 20 mg IV NOW MAURO Last Admin: 06/11/23 15:58 Dose: 20 mg Documented By: MPO Sodium Chloride (Normal Saline 0.9%) 1,000 mls @ 1,000 mls/hr IV BOLUS ONE Stop: 06/11/23 16:44 Last Infusion: 06/11/23 17:24 Dose: Infused Documented By: Admin: 06/11/23 16:06 Dose: 1,000 mls/hr Documented By: SAL Sodium Chloride (Normal Saline 0.9%) 1,000 mls @ 1,000 mls/hr IV BOLUS ONE Stop: 06/11/23 17:03 Last Admin: 06/11/23 16:20 Dose: Not Given Documented By: SAL Methylprednisolone (Methylprednisolone 125 Mg/2 Ml Vial) 125 mg IV NOW ONE Stop: 06/11/23 15:46 Last Admin: 06/11/23 16:07 Dose: 125 mg Documented By: SAL Ondansetron HCl (Ondansetron 4 Mg/2 Ml Inj) 4 mg IV NOW ONE Stop: 06/11/23 16:59 Last Admin: 06/11/23 17:01 Dose: 4 mg Documented By: SAL Vital Signs Vital signs: Vital Signs - 8 hr 06/11/23 15:27 06/11/23 15:50 06/11/23 16:00 Temperature 97.4 F L Pulse Rate 146 H 133 H 140 H Respiratory Rate 20 30 H 22 Blood Pressure 109/64 131/79 106/63 Pulse Oximetry 99 98 97 Oxygen Delivery Method Room Air Room Air Room Air 06/11/23 16:05 06/11/23 16:15 06/11/23 16:30 Temperature Pulse Rate 132 H 111 H 96 H Respiratory Rate 16 18 13 Blood Pressure 103/73 119/71 110/70 Pulse Oximetry 99 100 96 Oxygen Delivery Method Room Air Room Air Room Air 06/11/23 16:45 06/11/23 17:00 06/11/23 17:25 Temperature Pulse Rate 88 95 H 98 H Respiratory Rate 14 17 16 Blood Pressure 106/62 101/58 L 105/56 L Pulse Oximetry 100 99 100 Oxygen Delivery Method Room Air Room Air 06/11/23 18:04 Temperature Pulse Rate 95 H Respiratory Rate 18 Blood Pressure 108/70 Pulse Oximetry 98 Oxygen Delivery Method Room Air MDM - Allergic Reaction MDM Narrative Medical decision making narrative: Patient 37-year-old female presents today after iron infusion concern for allergic reaction. Heart is quite fast seems to be an anxiety component as well but states that her throat is closing. She is treated for anaphylaxis with IV Solu-Medrol Benadryl and Pepcid. She actually improved quite a bit. At no time did she have any obvious tongue swelling or lip swelling her hands do look mildly swollen there are no urticaria or hives. She was monitored and quickly felt better. She has an EpiPen in her purse she is familiar with how to use it for a walnut reaction. Discharge Plan Departure Patient Disposition: Home Clinical Impression: Allergic reaction Instructions: DI for Anaphylaxis Activity Restrictions/Additional Instructions: *You have been diagnosed with allergic reaction *What to do: This time it does appear that you had an allergic reaction to iron. Please continue to carry EpiPen with you at all times *Continue to take medications as directed May take Benadryl 25-50 mg every 6 hours if needed Prednisone 40 mg once a day for 3 days *Follow up with your primary care provider in 2-3 days or call [phone] *Return to ER if you should have increasing difficulty breathing throat closing tongue swelling lip swelling or any new, worsening or concerning symptoms Prescriptions: New prednisone 20 mg tablet 40 mg PO DAILY Qty: 6 0RF No Action ondansetron 4 mg tablet,disintegrating See Rx Instructions .ROUTE .COMPLEX Qty: 7 0RF Dose Instruction: dissolve 1 tablet ON TONGUE four times a day if needed for nausea OR vomiting Rx Instructions: dissolve 1 tablet ON TONGUE four times a day if needed for nausea OR vomiting albuterol sulfate 90 mcg/actuation HFA aerosol inhaler 2 puff inhalation Q6H PRN (Reason: sob) Qty: 8.5 3RF atorvastatin 20 mg tablet 20 mg PO DAILY Qty: 90 1RF lorazepam 0.5 mg tablet 0.5 mg PO BID PRN (Reason: anxiety) Qty: 90 0RF Rx Instructions: Med only to use as needed. If requiring medication on a scheduled basis, will need to treat or adjust other medications to address. cyclobenzaprine 5 mg tablet 5 mg PO TID PRN (Reason: muscle spasm) Qty: 30 3RF floradex PO levothyroxine 50 mcg capsule 50 mcg PO DAILY ergocalciferol (vitamin D2) 1,250 mcg (50,000 unit) capsule 1,250 mcg PO QWEEK epinephrine 0.3 mg/0.3 mL auto-injector 0.3 mg IM Q5-15M PRN (Reason: anaphylaxis) Qty: 2 3RF Rx Instructions: do not exceed 3 doses per episode phenazopyridine [Pyridium] 200 mg tablet 200 mg PO TID PRN (Reason: pain) Qty: 6 2RF ibuprofen 800 mg tablet 800 mg PO TID PRN (Reason: pain) Qty: 90 5RF Rx Instructions: with food hydrocodone-acetaminophen 10-325 mg tablet 1 tab PO Q8H PRN Referrals: Caleb Esposito MD [Primary Care Provider] - Stand Alone Forms: Patient Portal/API
[2023-06-11] MEDS: SODIUM CHLORIDE 0.9% 1,000 ML 1000 ML IV (16:06)
[2023-06-11] MEDS: methylPREDNISolone 125 MG/2 ML VIAL IV (16:07)
[2023-06-11] MEDS: diphenhydrAMINE 50 MG/ML VIAL 25 MG IV (16:07)
--- NOTE | 2023-06-11 16:24 | PC.NURSE ---
1558 Pt c/o SOB and feeling like her heart is racing. Pt HR 125, RR 26 and o2 sat 100% 2L NC. Dr Petty notified and at bedside. Verbal order for 0.5mg of epi and 20mg of famotidine from Dr Petty. Extremities pink and warm and pt speaking in full sentences. at bedside. 1612 Pt sitting up in bed. HR 96, o2 sat 100% on RA, RR 15. Pt extremities pink and warm. Pt speaking in full clear sentences. remains at bedside.
[2023-06-11] MEDS: ONDANSETRON 4 MG/2 ML INJ IV (17:01)
== END 2023-06-11 18:07 | disposition home or self-care (01) ==
PROVIDERS: Emergency Provider Emergency Medicine; PCP Family Medicine
DX: R00.0 Tachycardia, unspecified (principal); F41.9 Anxiety disorder, unspecified; T45.4X5A Adverse effect of iron and its compounds, initial encounter; D50.9 Iron deficiency anemia, unspecified; K91.89 Other postprocedural complications and disorders of digestive system
CPT/HCPCS: 96361; 96365; 96366; 96372; 96375; 99284; J0171; J1200; J1756; J2405; J2930

== ENCOUNTER 2023-06-12 15:34 | Inpatient (IN) | payer OTHER, SELFPAY ==
[2023-06-12] VITALS (7 sets, daily range): BP systolic 109–128; BP diastolic 56–81; PULSE 79–127; RESP 15–24; TEMP 36.2–36.5; O2SAT 98–100; BMI 24.7
--- NOTE | 2023-06-12 15:48 | ED.ALLEREA ---
HPI - Allergic Reaction General Chief complaint: Allergic Reaction Stated complaint: sent by [place] Time Seen by Provider: 06/12/23 15:48 Source: patient and family Mode of arrival: Wheelchair History of Present Illness HPI narrative: patient here with continued with swelling of the limbs and discoloration of the digits and toes. Also with facial swelling. No itching or rash. Patient seen here yesterday for allergic reaction for iron infusion she had for the 1st timeYesterday for anemia. . Patient does have immune deficiency condition that she can not make antigens. However she states she has had steroids. Yesterday she did receive Benadryl Solu-Medrol and Pepcid Related Data Home Medications Medication Instructions Recorded Confirmed levothyroxine 50 mcg capsule 50 mcg PO DAILY 09/06/20 06/17/23 immune globulin (human) (IgG) 10 20 g IV Q1M 06/16/23 06/17/23 gram intravenous solution Previous Rx's Medication Instructions Recorded albuterol sulfate 90 mcg/actuation 1 inh inhalation QID PRN shortness 06/16/23 aerosol inhaler of breath or wheezing #8.5 grams prednisone 10 mg tablet 10 mg PO DAILY #3 tabs 06/20/23 levonorgestrel 0.15 mg-ethinyl See Rx Instructions PO .COMPLEX 07/01/23 estradiol 30 mcg tablets,3 mos #91 ea pack(91) (Rachela) lorazepam 0.5 mg tablet 0.5 mg PO BID PRN anxiety #60 tabs 07/01/23 Allergies Allergy/AdvReac Type Severity Reaction Status Date / Time iron [From Venofer] Allergy Severe Anaphylaxis Verified 07/01/23 08:28 walnut Allergy Severe Swelling Verified 07/01/23 08:28 of Lip/Tongue/Throat Review of Systems Review of Systems Narrative: GENERAL: negative chills, fatigue, malaise, fever, sweats. HEENT: negative sinus pain, ear pain, sore throat RESPIRATORY: negative dyspnea, cough CARDIOVASCULAR: negative chest pain, palpitations GASTROINTESTINAL: negative nausea, vomiting, abdominal pain : negative dysuria, frequency, hematuria MUSCULOSKELETAL: negative muscle or bony pain, positive limb swelling SKIN: negative rash, skin lesions NEUROLOGIC: negative weakness, numbness ROS Unobtainable: All systems reviewed & are unremarkable except as noted in HPI and below Patient History Medical History (Updated 06/26/23 @ 00:01 by ) Hypotension Fatigue associated with anemia History of intravenous iron allergy Iron deficiency anemia Family history of breast cancer in mother Anxiety Hyperglycemia Hypothyroidism Anti-polysaccharide antibody deficiency Vitamin D deficiency Elevated liver enzymes Lung granuloma Surgical History History of gastric bypass Social History household members: significant other and children Smoking Status: Never smoker Smoking Status: Never smoker alcohol intake frequency: holidays/special occasions only Substance Use Type: does not use Exam Narrative Exam Narrative: GENERAL: in no distress, not toxic not dyspneic HEAD: Normocephalic. EYES: Pupils equal round ENT: Mucous membranes moist. There is tongue edema and lip edema. No tongue elevation no drooling. No pharyngeal edema erythema or uvular swelling. NECK: Trachea midline. No stridor CARDIOVASCULAR: Regular rate and rhythm RESPIRATORY: Clear to auscultation. Breath sounds equal bilaterally. No wheezes, rales, or rhonchi. patient is speaking full sentences. No respiratory distress. GASTROINTESTINAL: Abdomen soft, non-tender EXTREMITIES: No gross deformities. There is diffuse symmetric edema Bilateral fingers and toes. Slight dusky discoloration the digits. But they are warm to touch with brisk cap refills. BACK: No flank tenderness. NEURO: AOx4. SKIN: Warm and dry PSYCH: Not anxious, is cooperative Initial Vital Signs Initial Vital Signs: Vital Signs Temperature 97.7 F 06/12/23 15:35 Pulse Rate 127 H 06/12/23 15:35 Respiratory Rate 24 06/12/23 15:35 Blood Pressure 126/81 06/12/23 15:35 Pulse Oximetry 100 06/12/23 15:35 Oxygen Delivery Method Room Air 06/12/23 15:35 Course Orders Ordered: Discontinued Medications Acetaminophen (Acetaminophen 325 Mg Tablet) 650 mg PO Q6H PRN PRN Reason: Fever/Mild Pain (1-3) Last Admin: 06/13/23 12:10 Dose: 650 mg Documented By: Admin: 06/12/23 23:57 Dose: 650 mg Documented By: LM Al Hydrox/Mg Hydrox/Simethicone 20 ml/ Lidocaine HCl 15 ml 0 ml PO Q8H PRN PRN Reason: GI upset Last Admin: 06/14/23 11:31 Dose: 1 ml Documented By: PAULINA Diazepam (Diazepam 10 Mg/2 Ml Syringe) 5 mg IV Q6HR PRN PRN Reason: Anxiety Last Admin: 06/15/23 21:16 Dose: 5 mg Documented By: Admin: 06/15/23 00:43 Dose: 5 mg Documented By: Admin: 06/14/23 17:13 Dose: 5 mg Documented By: PAULINA Diphenhydramine HCl (Diphenhydramine 50 Mg/Ml Vial) 25 mg IV NOW ONE Stop: 06/12/23 15:50 Last Admin: 06/12/23 16:02 Dose: 25 mg Documented By: DEBORA Diphenhydramine HCl (Diphenhydramine 25 Mg Tablet) 50 mg PO Q6HR [facility] Last Admin: 06/14/23 12:57 Dose: Not Given Documented By: Admin: 06/14/23 05:46 Dose: 50 mg Documented By: Admin: 06/13/23 23:49 Dose: 50 mg Documented By: Admin: 06/13/23 17:29 Dose: 50 mg Documented By: Admin: 06/13/23 12:09 Dose: 50 mg Documented By: Admin: 06/13/23 06:18 Dose: 50 mg Documented By: Admin: 06/12/23 23:35 Dose: 50 mg Documented By: MARCELA Diphenhydramine HCl (Diphenhydramine 50 Mg/Ml Vial) 50 mg IV Q6HR PRN PRN Reason: swelling, difficulty swallowin Last Admin: 06/15/23 09:15 Dose: 50 mg Documented By: Admin: 06/14/23 20:13 Dose: 50 mg Documented By: Admin: 06/14/23 13:14 Dose: 50 mg Documented By: PAULINA Famotidine (Famotidine 20 Mg/2 Ml Vial) 20 mg IV NOW [facility] Last Admin: 06/13/23 07:48 Dose: 20 mg Documented By: Admin: 06/12/23 21:29 Dose: 20 mg Documented By: Admin: 06/12/23 21:17 Dose: 20 mg Documented By: Admin: 06/12/23 16:02 Dose: 20 mg Documented By: DEBORA Famotidine (Famotidine 20 Mg/2 Ml Vial) 20 mg IV BID [facility] Last Admin: 06/16/23 08:33 Dose: 20 mg Documented By: Admin: 06/15/23 21:17 Dose: 20 mg Documented By: Admin: 06/15/23 11:10 Dose: 20 mg Documented By: Admin: 06/14/23 20:14 Dose: 20 mg Documented By: Admin: 06/14/23 08:31 Dose: 20 mg Documented By: Admin: 06/13/23 20:17 Dose: 20 mg Documented By: Admin: 06/13/23 08:40 Dose: 20 mg Documented By: Admin: 06/12/23 21:47 Dose: Not Given Documented By: MARCELA Furosemide (Furosemide 20 Mg/2 Ml Vial) 20 mg IV NOW ONE Stop: 06/14/23 14:58 Last Admin: 06/14/23 16:14 Dose: 20 mg Documented By: PAULINA Furosemide (Furosemide 20 Mg/2 Ml Vial) 20 mg IV NOW ONE Stop: 06/15/23 10:23 Last Admin: 06/15/23 11:10 Dose: 20 mg Documented By: MARISOL Furosemide (Furosemide 20 Mg/2 Ml Vial) 20 mg IV NOW ONE Stop: 06/16/23 08:01 Last Admin: 06/16/23 08:33 Dose: 20 mg Documented By: BEN Hydromorphone HCl (Hydromorphone 0.5 Mg Inj) 0.5 mg IV Q4H PRN PRN Reason: Pain, Moderate (4-6) Last Admin: 06/14/23 14:36 Dose: 0.5 mg Documented By: AKP Sodium Chloride (Normal Saline 0.9%) 1,000 mls @ 100 mls/hr IV CONT MAURO Last Admin: 06/13/23 23:54 Dose: 100 mls/hr Documented By: Infusion: 06/13/23 23:54 Dose: Infused Documented By: Admin: 06/13/23 14:54 Dose: 100 mls/hr Documented By: Infusion: 06/13/23 14:51 Dose: Infused Documented By: Admin: 06/13/23 04:51 Dose: 100 mls/hr Documented By: Infusion: 06/13/23 04:46 Dose: Infused Documented By: Admin: 06/12/23 18:46 Dose: 100 mls/hr Documented By: RHONDA Levothyroxine Sodium (Levothyroxine 50 Mcg Tablet) 50 mcg PO 0600 [facility] Last Admin: 06/16/23 05:39 Dose: 50 mcg Documented By: Admin: 06/15/23 06:47 Dose: 50 mcg Documented By: Admin: 06/14/23 05:46 Dose: 50 mcg Documented By: Admin: 06/13/23 07:49 Dose: 50 mcg Documented By: RHONDA Methylprednisolone (Methylprednisolone 125 Mg/2 Ml Vial) 125 mg IV NOW ONE Stop: 06/12/23 15:50 Last Admin: 06/12/23 16:02 Dose: 125 mg Documented By: DEBORA Methylprednisolone (Methylprednisolone 125 Mg/2 Ml Vial) 60 mg IV Q6H [facility] Last Admin: 06/16/23 05:48 Dose: 60 mg Documented By: Admin: 06/15/23 23:44 Dose: 60 mg Documented By: Admin: 06/15/23 19:00 Dose: 60 mg Documented By: Admin: 06/15/23 13:41 Dose: 60 mg Documented By: Admin: 06/15/23 06:47 Dose: 60 mg Documented By: Admin: 06/15/23 00:42 Dose: 60 mg Documented By: Admin: 06/14/23 18:08 Dose: 60 mg Documented By: Admin: 06/14/23 11:50 Dose: 60 mg Documented By: Admin: 06/14/23 05:46 Dose: 60 mg Documented By: Admin: 06/13/23 23:49 Dose: 60 mg Documented By: Admin: 06/13/23 18:14 Dose: 60 mg Documented By: Admin: 06/13/23 12:11 Dose: 60 mg Documented By: Admin: 06/13/23 06:18 Dose: 60 mg Documented By: Admin: 06/12/23 23:45 Dose: 60 mg Documented By: Admin: 06/12/23 18:46 Dose: 60 mg Documented By: RHONDA Methylprednisolone (Methylprednisolone 125 Mg/2 Ml Vial) 60 mg IV BID [facility] Last Admin: 06/16/23 08:33 Dose: 60 mg Documented By: BEN Morphine Sulfate (Morphine 2 Mg/Ml Inj) 2 mg IV Q2HR PRN PRN Reason: Pain, Moderate (4-6) Last Admin: 06/14/23 08:31 Dose: 2 mg Documented By: Admin: 06/13/23 22:22 Dose: 2 mg Documented By: Admin: 06/13/23 18:58 Dose: 2 mg Documented By: RHONDA Naloxone HCl (Naloxone 0.4 Mg/Ml Vial) 0.2 mg IV Q2MIN PRN PRN Reason: Opiate Reversal Ondansetron HCl (Ondansetron 4 Mg/2 Ml Inj) 4 mg IV Q8HR PRN PRN Reason: Nausea And Vomiting Last Admin: 06/12/23 18:53 Dose: 4 mg Documented By: RHONDA Ondansetron HCl (Ondansetron 4 Mg/2 Ml Inj) 4 mg IV Q4HR PRN PRN Reason: Nausea And Vomiting Last Admin: 06/14/23 14:31 Dose: 4 mg Documented By: Admin: 06/14/23 08:31 Dose: 4 mg Documented By: Admin: 06/13/23 19:48 Dose: 4 mg Documented By: Admin: 06/13/23 12:11 Dose: 4 mg Documented By: Admin: 06/13/23 07:52 Dose: 4 mg Documented By: RHONDA Vital Signs Vital signs: Vital Signs - 8 hr 06/12/23 15:35 06/12/23 16:00 06/12/23 16:30 Temperature 97.7 F Pulse Rate 127 H 92 H 93 H Respiratory Rate 24 20 18 Blood Pressure 126/81 116/56 L 115/63 Pulse Oximetry 100 99 99 Oxygen Delivery Method Room Air Room Air Room Air MDM - Allergic Reaction Lab Data 06/12/23 15:54 06/12/23 15:54 Labs: Lab Results 06/12/23 06/13/23 06/13/23 Range/Units 15:54 15:10 18:40 WBC 17.0 H (4.5-11.0) X10^3/uL RBC 4.53 (4.0-5.2) X10^6/uL Hgb 11.4 L (12.0-16.0) g/dL Hct 34.8 L (36-46) % MCV 76.7 L (80-100) fL MCH 25.1 L (26-34) PG MCHC 32.7 (30-36) % RDW 15.2 H (11.6-14.8) % Plt Count 331 (150-400) X10^3/uL Neut % (Auto) 88.6 H (50-75) % Lymph % (Auto) 8.2 L (25-40) % [place] % (Auto) 2.7 L (3-14) % Eos % (Auto) 0.0 L (2-4) % Baso % (Auto) 0.5 (0-2) % Neut # (Auto) 12578 H (6259-2723) /uL Lymph # (Auto) 1400 (4368-1768) /uL [place] # (Auto) 500 (0-900) /uL Eos # (Auto) 0 (0-450) /uL Baso # (Auto) 100 (0-100) /uL PT 12.1 (9.4-12.5) SECONDS INR 1.1 (0.9-1.3) APTT 27 (25.1-36.5) SECONDS Sodium 140 (137-145) mmol/L Potassium 4.1 (3.4-5.1) mmol/L Chloride 107 (98-107) mmol/L Carbon Dioxide 21 L (22-32) mmol/L BUN 14 (7-17) mg/dL Creatinine 0.57 (0.52-1.04) mg/dL Estimated GFR > 60 (>60) mL/min BUN/Creatinine Ratio 24.6 H (6-22) Glucose 132 H (70-100) mg/dL Calcium 9.5 (8.4-10.2) mg/dL Iron 105 D (37-170) ug/dL TIBC 318 (265-497) ug/dL % Saturation 33 D (15-50) % Transferrin 258 (206-381) mg/dL Total Bilirubin 0.4 (0.2-1.3) mg/dL AST 19 (14-36) IU/L ALT 16 (<35) IU/L Alkaline Phosphatase 59 (38-126) U/L Troponin I < 0.012 (0.01-0.034) ng/mL Total Protein 7.9 (6.3-8.2) g/dL Albumin 4.6 (3.5-5.0) g/dL Globulin 3.3 (1.7-4.1) g/dL Albumin/Globulin Ratio 1.4 (1.0-2.8) 06/14/23 Range/Units 10:45 WBC (4.5-11.0) X10^3/uL RBC (4.0-5.2) X10^6/uL Hgb (12.0-16.0) g/dL Hct (36-46) % MCV (80-100) fL MCH (26-34) PG MCHC (30-36) % RDW (11.6-14.8) % Plt Count (150-400) X10^3/uL Neut % (Auto) (50-75) % Lymph % (Auto) (25-40) % [place] % (Auto) (3-14) % Eos % (Auto) (2-4) % Baso % (Auto) (0-2) % Neut # (Auto) (6454-6849) /uL Lymph # (Auto) (0163-5710) /uL [place] # (Auto) (0-900) /uL Eos # (Auto) (0-450) /uL Baso # (Auto) (0-100) /uL PT (9.4-12.5) SECONDS INR (0.9-1.3) APTT (25.1-36.5) SECONDS Sodium (137-145) mmol/L Potassium (3.4-5.1) mmol/L Chloride (98-107) mmol/L Carbon Dioxide (22-32) mmol/L BUN (7-17) mg/dL Creatinine (0.52-1.04) mg/dL Estimated GFR (>60) mL/min BUN/Creatinine Ratio (6-22) Glucose (70-100) mg/dL Calcium (8.4-10.2) mg/dL Iron (37-170) ug/dL TIBC (265-497) ug/dL % Saturation (15-50) % Transferrin (206-381) mg/dL Total Bilirubin (0.2-1.3) mg/dL AST (14-36) IU/L ALT (<35) IU/L Alkaline Phosphatase (38-126) U/L Troponin I < 0.012 (0.01-0.034) ng/mL Total Protein (6.3-8.2) g/dL Albumin (3.5-5.0) g/dL Globulin (1.7-4.1) g/dL Albumin/Globulin Ratio (1.0-2.8) MDM Narrative Medical decision making narrative: patient here with continued with swelling of the limbs and discoloration of the digits and toes. Also with facial swelling. No itching or rash. Patient seen here yesterday for allergic reaction for iron infusion she had for the 1st timeYesterday for anemia. . Patient does have immune deficiency condition that she can not make antigens. However she states she has had steroids. Yesterday she did receive Benadryl Solu-Medrol and Pepcid After history and examCBC CMP PT INR Solu-Medrol Benadryl Pepcid MDM CC: allergic reaction Complicating co-morbidities: immune deficiency Data collected from: patient and Medical records reviewed: patient seen here yesterday Differential considered: Includes but not limited to anaphylaxis allergic reaction Exam documented above, pertinent findings include: edematous toes and fingers , tongue swelling Lab Test results independently reviewed as above. Pertinent findings: WBC 17.0 likely due to steroids use yesterday. Hemoglobin 11.4 hematocrit 34.8 platelets 331 sodium 140 potassium 4.1 BUN 14 creatinine 0.57 Consultations: 5:[address] Trevino, hospitalist, he will admit patient Treatments: Solu-Medrol Benadryl Pepcid Re-evaluations: 5:45 p.m.. Reviewed results with patient. White cell count likely due to steroids from yesterday. Color discoloration in the fingers and toes have improved. However tongue swelling remains but airway is protected. Discussion: appropriate for admission. Patient symptoms have improved but will require likely IV medications to help for her allergic reaction. Airway is protected. Not toxic or dyspneic. Patient and family agree for admission. Hospitalist will see patient for admission. Diagnosis: allergic reaction Discharge Plan Departure Patient Disposition: Admitted as Observation Clinical Impression: Allergic reaction Qualifiers: Encounter type: subsequent encounter Qualified Code(s): T78.40XD - Allergy, unspecified, subsequent encounter Admit Date/Time: 06/14/23 15:17 Admit Provider: Quinn Trevino
[2023-06-12] MEDS: methylPREDNISolone 125 MG/2 ML VIAL IV (16:02)
[2023-06-12] MEDS: diphenhydrAMINE 50 MG/ML VIAL 25 MG IV (16:02)
[2023-06-12] MEDS: FAMOTIDINE 20 MG/2 ML VIAL IV ×3 (16:02→21:29)
[2023-06-12 16:05] LABS: Add Manual Diff / Slide Review NO; Basophils Absolute Auto 100 /uL (0-100); Basophils Percent Auto 0.5 % (0-2); Eosinophils Absolute Auto 0 /uL (0-450); Hematocrit 34.8 % (36-46); Hemoglobin 11.4 g/dL (12.0-16.0); Lymphocytes Absolute Auto 1400 /uL (1100-4500); Lymphocytes Percent Auto 8.2 % (25-40); Mean Corpuscular HGB Conc 32.7 % (30-36); Mean Corpuscular Hemoglobin 25.1 PG (26-34); Mean Corpuscular Volume 76.7 fL (80-100); Monocytes Absolute Auto 500 /uL (0-900); Monocytes Percent Auto 2.7 % (3-14); Neutrophils Absolute Auto 15000 /uL (1500-7000); Neutrophils Percent Auto 88.6 % (50-75); Platelet Count 331 X10^3/uL (150-400); Red Blood Cell Count 4.53 X10^6/uL (4.0-5.2); Red Cell Distribution Width 15.2 % (11.6-14.8)
[2023-06-12 16:12] LABS: INR 1.1 (0.9-1.3); Prothrombin Time 12.1 SECONDS (9.4-12.5)
[2023-06-12 16:14] LABS: PTT Partial Thromboplastin Tim 27 SECONDS (25.1-36.5)
[2023-06-12 16:16] LABS: Alanine Aminotransferase 16 IU/L (<35); Albumin 4.6 g/dL (3.5-5.0); Albumin Globulin Ratio 1.4 (1.0-2.8); Alkaline Phosphatase 59 U/L (38-126); Aspartate Aminotransferase 19 IU/L (14-36); BUN Creatinine Ratio 24.6 (6-22); Bilirubin Total 0.4 mg/dL (0.2-1.3); Blood Urea Nitrogen 14 mg/dL (7-17); Calcium 9.5 mg/dL (8.4-10.2); Carbon Dioxide 21 mmol/L (22-32); Chloride 107 mmol/L (98-107); Estimated Glomerular Filt Rate > 60 mL/min (>60); Globulin 3.3 g/dL (1.7-4.1); Glucose 132 mg/dL (70-100); HEMOLYSIS < 15 (0-50); Potassium 4.1 mmol/L (3.4-5.1); Sodium 140 mmol/L (137-145); Total Protein 7.9 g/dL (6.3-8.2)
--- NOTE | 2023-06-12 18:04 | P.HP_ITS ---
History of Present Illness History of Present Illness Date Patient Seen: 06/12/23 Time Patient Seen: 18:04 Chief complaint: sent by ISMAEL Bobby Narrative: The patient is a pleasant 37-year-old female who presents with an allergic reaction to an IV iron infusion. She was given the infusion yesterday and had an immediate reaction prompting a visit to the ED. at that time she had urticarial symptoms and some angioedema. She was treated with IV steroids as well as Benadryl and Pepcid. She was discharged with p.o. Benadryl and prednisone. She returns today because of ongoing swelling and possible increased swelling of the lips and tongue. She keeps biting her tongue because it is big. She denies any dyspnea, or wheezing. The only other allergy she has a history of is to walnuts and she does carry an EpiPen but has never had to use this. She also notes receiving IVIG monthly and will sometimes get mild reactions including palpitations and itchiness. She has a history of iron- deficiency anemia as well as anti polysaccharide antibody deficiency. This is what she receives IVIG for. She denies any nausea, headache, fevers, or chills. No diarrhea, or vomiting. Today in the ED she was given repeat doses of Solu-Medrol, and Benadryl as well as Pepcid. [facility] Medical History Iron deficiency anemia Family history of breast cancer in mother Anxiety Hyperglycemia Hypothyroidism Anti-polysaccharide antibody deficiency Vitamin D deficiency Elevated liver enzymes Lung granuloma Surgical History History of gastric bypass Social History Smoking Status: Never smoker Meds Home Medications and Allergies Home Medications Medication Instructions Recorded Confirmed Type ergocalciferol (vitamin D2) 1,250 1,250 mcg PO QWEEK 09/06/20 06/12/23 History mcg (50,000 unit) capsule levothyroxine 50 mcg capsule 50 mcg PO DAILY 09/06/20 06/12/23 History epinephrine 0.3 mg/0.3 mL 0.3 mg (0.3 mL) IM Q5-15M PRN 10/12/21 06/12/23 Rx injection, auto-injector anaphylaxis #2 ea ondansetron 4 mg disintegrating See Rx Instructions .Route 10/12/21 06/12/23 Rx tablet .COMPLEX #7 tabs phenazopyridine 200 mg tablet 200 mg PO TID PRN pain 6 doses #6 10/12/21 06/12/23 Rx (Pyridium) tabs albuterol sulfate 90 mcg/actuation 2 puff inhalation Q6H PRN sob #8.5 12/14/21 06/12/23 Rx aerosol inhaler grams ibuprofen 800 mg tablet 800 mg PO TID PRN pain #90 tabs 02/27/22 06/12/23 Rx atorvastatin 20 mg tablet 20 mg PO DAILY #90 tabs 11/26/22 06/12/23 Rx hydrocodone 10 mg-acetaminophen 1 tab PO Q8H PRN 03/11/23 06/12/23 History 325 mg tablet lorazepam 0.5 mg tablet 0.5 mg PO BID PRN anxiety #90 tabs 04/04/23 06/12/23 Rx cyclobenzaprine 5 mg tablet 5 mg PO TID PRN muscle spasm #30 04/09/23 06/12/23 Rx tabs floradex PO iron suplement 05/28/23 06/12/23 History prednisone 20 mg tablet 40 mg (2 x 20 mg) PO DAILY #6 tabs 06/11/23 06/12/23 Rx Allergies Allergy/AdvReac Type Severity Reaction Status Date / Time walnuts Allergy Severe my throat Uncoded 06/12/23 15:17 swells up Review of Systems Review of Systems Narrative: All else reviewed and otherwise unremarkable except as noted in history and physical. Exam Vital Signs (past 8 hours): - 06/12/23 15:35 06/12/23 16:00 06/12/23 16:30 Temperature 97.7 F Pulse Rate 127 H 92 H 93 H Respiratory Rate 24 20 18 Blood Pressure 126/81 116/56 L 115/63 Pulse Oximetry 100 99 99 Oxygen Delivery Method Room Air Room Air Room Air 06/12/23 17:00 06/12/23 17:30 Temperature Pulse Rate 82 79 Respiratory Rate 18 15 Blood Pressure 117/77 109/76 Pulse Oximetry 99 98 Oxygen Delivery Method Room Air Room Air Oxygen Delivery Method Room Air Narrative Exam Narrative: Alert and oriented, no acute distress, normal speech. Mild anxious affect. She is obvious angioedema of her lips and some facial swelling as well as mild enlargement of the tongue. Normocephalic skull, EOMI, anicteric sclera. Neck is supple, no adenopathy. Midline trachea. Lungs are clear, no wheezing, normal effort and rate. Heart is regular, without murmur gallop or rub. Abdomen is soft, somewhat swollen and non tender. Extremities are notable for trace edema in both feet, good pedal pulses. Skin is somewhat swollen but free of rash or lesions today. Joints are free of deformity. Objective Labs 06/12/23 15:54 06/12/23 15:54 Labs: Laboratory Results - last 24 hr 06/12/23 15:54 WBC 17.0 H RBC 4.53 Hgb 11.4 L Hct 34.8 L MCV 76.7 L MCH 25.1 L MCHC 32.7 RDW 15.2 H Plt Count 331 Neut % (Auto) 88.6 H Lymph % (Auto) 8.2 L [place] % (Auto) 2.7 L Eos % (Auto) 0.0 L Baso % (Auto) 0.5 Neut # (Auto) 17902 H Lymph # (Auto) 1400 [place] # (Auto) 500 Eos # (Auto) 0 Baso # (Auto) 100 PT 12.1 INR 1.1 APTT 27 Sodium 140 Potassium 4.1 Chloride 107 Carbon Dioxide 21 L BUN 14 Creatinine 0.57 Estimated GFR > 60 BUN/Creatinine Ratio 24.6 H Glucose 132 H Calcium 9.5 Total Bilirubin 0.4 AST 19 ALT 16 Alkaline Phosphatase 59 Total Protein 7.9 Albumin 4.6 Globulin 3.3 Albumin/Globulin Ratio 1.4 Assessment & Plan Assessment & Plan narrative: 1. Allergic reaction to iron, present on admission and improving. 2. Anti polysaccharide antibody deficiency, present on admission and active. 3. Iron deficiency anemia, present on admission and active. 4. Hypothyroidism, present on admission and active. 5. Vitamin-D deficiency, present on admission and stable. Plan: We will give her Solu-Medrol 60 mg IV q.6 hours, Benadryl 50 mg IV q.6 hours, and Pepcid p.o. b.i.d.. We will monitor her overnight as observation status. Anticipate 1 midnight of medically necessary hospital level surfaces with probable discharge of June 13. Time Spent With Patient Time with patient: 30 to 49 minutes with 50% spent counseling/coordinating care
[2023-06-12] MEDS: SODIUM CHLORIDE 0.9% 1,000 ML 100 ML IV (18:46)
[2023-06-12] MEDS: methylPREDNISolone 125 MG/2 ML VIAL 60 MG IV ×2 (18:46→23:45)
[2023-06-12] MEDS: ONDANSETRON 4 MG/2 ML INJ IV (18:53)
[2023-06-12] MEDS: diphenhydrAMINE 25 MG TABLET 50 MG PO (23:35)
[2023-06-12] MEDS: ACETAMINOPHEN 325 MG TABLET 650 MG PO (23:57)
[2023-06-13] VITALS (7 sets, daily range): BP systolic 93–127; BP diastolic 50–81; PULSE 63–83; RESP 16–22; TEMP 35.9–36.4; O2SAT 94–99
[2023-06-13] MEDS: SODIUM CHLORIDE 0.9% 1,000 ML 100 ML IV ×3 (04:51→23:54)
[2023-06-13] MEDS: diphenhydrAMINE 25 MG TABLET 50 MG PO ×4 (06:18→23:49)
[2023-06-13] MEDS: methylPREDNISolone 125 MG/2 ML VIAL 60 MG IV ×4 (06:18→23:49)
[2023-06-13] MEDS: FAMOTIDINE 20 MG/2 ML VIAL IV ×3 (07:48→20:17)
[2023-06-13] MEDS: LEVOTHYROXINE 50 MCG TABLET PO (07:49)
[2023-06-13] MEDS: ONDANSETRON 4 MG/2 ML INJ IV ×3 (07:52→19:48)
--- NOTE | 2023-06-13 12:03 | P.PN_ITS ---
Subjective Subjective Interval history: She has residual swelling of her tongue and lips. Her face is still swollen. Her left hand and left foot are still swollen. She has no skin rash. She denies any pruritus. She also denies shortness of breath, but is having some palpitations from the Benadryl. She had an allergic reaction to IV iron 2 days ago. She is being treated with steroids, and antihistamines as well as Pepcid. Exam Vital Signs (past 8 hours): - 06/13/23 08:00 06/13/23 12:00 Temperature 97 F L 97.5 F L Pulse Rate 69 73 Respiratory Rate 22 20 Blood Pressure 109/63 107/72 Pulse Oximetry 94 98 Oxygen Flow Rate 0 0 Oxygen Delivery Method Room Air Oxygen Flow Rate 0 Narrative Exam Narrative: Angioedema of the tongue and lips. She has a patent airway and her uvula is easily visualized Normal speech, no distress. Lungs are clear with no wheezing and normal rate and effort. There is no stridor. Heart is regular without murmur. Abdomen is nondistended and non tender. Some swelling of the left hand and left foot. No urticaria. Objective Labs 06/12/23 15:54 06/12/23 15:54 Labs: Laboratory Results - last 24 hr 06/12/23 15:54 WBC 17.0 H RBC 4.53 Hgb 11.4 L Hct 34.8 L MCV 76.7 L MCH 25.1 L MCHC 32.7 RDW 15.2 H Plt Count 331 Neut % (Auto) 88.6 H Lymph % (Auto) 8.2 L [place] % (Auto) 2.7 L Eos % (Auto) 0.0 L Baso % (Auto) 0.5 Neut # (Auto) 95331 H Lymph # (Auto) 1400 [place] # (Auto) 500 Eos # (Auto) 0 Baso # (Auto) 100 PT 12.1 INR 1.1 APTT 27 Sodium 140 Potassium 4.1 Chloride 107 Carbon Dioxide 21 L BUN 14 Creatinine 0.57 Estimated GFR > 60 BUN/Creatinine Ratio 24.6 H Glucose 132 H Calcium 9.5 Total Bilirubin 0.4 AST 19 ALT 16 Alkaline Phosphatase 59 Total Protein 7.9 Albumin 4.6 Globulin 3.3 Albumin/Globulin Ratio 1.4 [facility] Medical History Iron deficiency anemia Family history of breast cancer in mother Anxiety Hyperglycemia Hypothyroidism Anti-polysaccharide antibody deficiency Vitamin D deficiency Elevated liver enzymes Lung granuloma Surgical History History of gastric bypass Social History household members: significant other and children Smoking Status: Never smoker Assessment & Plan Assessment & Plan narrative: 1. Allergic reaction to iron, present on admission and improving. 2. Anti polysaccharide antibody deficiency, present on admission and active. 3. Iron deficiency anemia, present on admission and active. 4. Hypothyroidism, present on admission and active. 5. Vitamin-D deficiency, present on admission and stable. Plan: She still has significant angioedema of the tongue and lips and require another midnight of hospital level services. Specifically, angioedema of the lips and tongue represents a risk to airway and risk of . We will continue current therapy of IV steroids, Benadryl, and Pepcid. We will monitor her airway. We will also check an iron level. I am not sure what formulation of IV iron she received. Dispo: Anticipate probable discharge on June 14 if angioedema of tongue and lips is improved. Time Spent With Patient Time with patient: 30 to 49 minutes with 50% spent counseling/coordinating care Quality VTE Deep Vein Thrombosis/Pulmonary Embolism Present on Admission: No
[2023-06-13] MEDS: ACETAMINOPHEN 325 MG TABLET 650 MG PO (12:10)
--- NOTE | 2023-06-13 12:29 | CM.DANOTE ---
Brief DCP Assessment Note Pt is a 37yo F here following allergic reaction to IV iron a few days ago. Pt is being treated with steroids and antihistamines. PCP Cate Weiner and self pay [facility]INFA reviewed EMR. Per provider in morning rounds, potential dc either today or tomorrow. Per provider PN later in day, anticipate dc tomorrow due to residual swelling in tongue and lips. Per RN, pt lives with spouse in [place]. Pt is indep at baseline. 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 No obvious CM needs. Plan: dc home with family when medically stable, likely tomorrow 2. No identified CM needs, CM team will continue to follow as needed. NINFA David Discharge Planning/Care Management CM Discharge Assessment Start: 06/13/23 12:28 Freq: Status: Active Protocol: Document 06/13/23 12:28 (Rec: 06/13/23 12:29 [id number]) Discharge Planning Assessment Assigned Sports Activities [employer] [facility]IN[facility] [place] DPOA/Assigned Designee Name Shravan spouse Contact Information [phone] Advance Directives? No History Provided By Patient,Significant Other Prior Living Arrangements House Household Members significant other,children Independent with ADL's Yes Is patient alert and oriented? Yes Barriers to Discharge No Discharge Plan Home Transportation Arrangement family in [place] Referrals Initiated None needed Whiteboard Updated in Patient Room with No name and ext. # of Sports Activities Foul Judge Review Status In Process Next Review Type Continued Stay Review
[2023-06-13 15:35] LABS: HEMOLYSIS < 15 (0-50); Iron 105 ug/dL (37-170)
[2023-06-13 15:45] LABS: Percent Iron Saturation 33 % (15-50); Total Iron Binding Capacity 318 ug/dL (265-497); Transferrin 258 mg/dL (206-381)
--- NOTE | 2023-06-13 17:42 | DI.RAD.S_ITS ---
PROCEDURE: XR CHEST 1V INDICATIONS: chest pain TECHNIQUE: One view of the chest was acquired. COMPARISON: [facility], CR, XR CHEST 2V, 10/12/2021, 11:06. FINDINGS: Surgical changes and devices: None. Lungs and pleura: Lungs are clear. No pleural effusions or pneumothorax. Mediastinum: Mediastinal contours appear normal. Heart size is normal. Bones and chest wall: No suspicious bony lesions. Overlying soft tissues appear unremarkable. IMPRESSION: No acute cardiopulmonary abnormality is seen. Dictated by: Vy David M.D. on 06/13/2023 at 18:42 Approved by: Vy David M.D. on 06/13/2023 at 18:42
[2023-06-13] MEDS: MORPHINE 2 MG/ML INJ IV ×2 (18:58→22:22)
[2023-06-13 19:16] LABS: Troponin I < 0.012 ng/mL (0.01-0.034)
[2023-06-14] VITALS: BP 93/66; PULSE 60; RESP 16; TEMP 36; O2SAT 98
[2023-06-14 04:00] VITALS: BP 102/62; PULSE 60; RESP 16; TEMP 36.7; O2SAT 98
[2023-06-14] MEDS: methylPREDNISolone 125 MG/2 ML VIAL 60 MG IV ×3 (05:46→18:08)
[2023-06-14] MEDS: diphenhydrAMINE 25 MG TABLET 50 MG PO (05:46)
[2023-06-14] MEDS: LEVOTHYROXINE 50 MCG TABLET PO (05:46)
--- NOTE | 2023-06-14 05:52 | PC.NURSE ---
Contacted Dr. Garza regarding an order for repeat trop, he stated no thank you.
[2023-06-14 08:00] VITALS: BP 98/62; PULSE 60; RESP 16; TEMP 36.4; O2SAT 98
[2023-06-14] MEDS: FAMOTIDINE 20 MG/2 ML VIAL IV ×2 (08:31→20:14)
[2023-06-14] MEDS: ONDANSETRON 4 MG/2 ML INJ IV ×2 (08:31→14:31)
[2023-06-14] MEDS: MORPHINE 2 MG/ML INJ IV (08:31)
[2023-06-14] MEDS: MAG HYDROX/ALUMINUM/SIMETH SUS 20 ML, LIDOCAINE VISCOUS 2% 15 ML PO (11:31)
[2023-06-14 11:50] LABS: Troponin I < 0.012 ng/mL (0.01-0.034)
[2023-06-14 12:00] VITALS: BP 110/72; PULSE 63; RESP 18; TEMP 36.4; O2SAT 98
[2023-06-14] MEDS: diphenhydrAMINE 50 MG/ML VIAL IV ×2 (13:14→20:13)
[2023-06-14] MEDS: HYDROMORPHONE 0.5 MG INJ IV (14:36)
[2023-06-14 16:00] VITALS: BP 115/74; PULSE 55; RESP 18; TEMP 36.3; O2SAT 98
[2023-06-14] MEDS: FUROSEMIDE 20 MG/2 ML VIAL IV (16:14)
[2023-06-14] MEDS: diazePAM 10 MG/2 ML SYRINGE 5 MG IV (17:13)
--- NOTE | 2023-06-14 17:16 | PM.PN.1 ---
Subjective Subjective Interval history: Patient's swelling in hands and legs having improved, but her throat swelling is still present. Having trouble swallowing pills. Benadryl changed from po to IV. She notes heaviness in her chest and feels anxious. Exam Vital Signs (past 8 hours): - 06/14/23 12:00 06/14/23 16:00 Temperature 97.6 F 97.4 F L Pulse Rate 63 55 L Respiratory Rate 18 18 Blood Pressure 110/72 115/74 Pulse Oximetry 98 98 Oxygen Flow Rate 0 0 Oxygen Delivery Method Room Air Oxygen Flow Rate 0 Narrative Exam Narrative: Angioedema of the tongue and lips. She has a patent airway and her uvula is easily visualized Normal speech, anxious. Lungs are clear with no wheezing and normal rate and effort. There is no stridor. Heart is regular without murmur. Abdomen is nondistended and non tender. Some swelling of the left hand and left foot which has improved. No urticaria. Objective Labs 06/12/23 15:54 06/12/23 15:54 Labs: Laboratory Results - last 24 hr 06/13/23 06/14/23 18:40 10:45 Troponin I < 0.012 < 0.012 PFSH Medical History Iron deficiency anemia Family history of breast cancer in mother Anxiety Hyperglycemia Hypothyroidism Anti-polysaccharide antibody deficiency Vitamin D deficiency Elevated liver enzymes Lung granuloma Surgical History History of gastric bypass Social History household members: significant other and children Smoking Status: Never smoker Assessment & Plan Assessment & Plan narrative: 1. Allergic reaction to iron, present on admission and improving. 2. Anti polysaccharide antibody deficiency, present on admission and active. 3. Iron deficiency anemia, present on admission and active. 4. Hypothyroidism, present on admission and active. 5. Vitamin-D deficiency, present on admission and stable. 6. Chest pain Plan: We will continue current therapy of IV steroids, Benadryl, and Pepcid. We will monitor her airway. Iron level 105. I am not sure what formulation of IV iron she received, but iron added her allergy list. Chest pain likely due to anxiety, IV valium ordered PRN. Dispo: Anticipate probable discharge on June 15 if angioedema of tongue and lips is improved. Time Spent With Patient Time with patient: 30 to 49 minutes with 50% spent counseling/coordinating care Quality VTE Deep Vein Thrombosis/Pulmonary Embolism Present on Admission: No
[2023-06-14 20:00] VITALS: BP 109/74; PULSE 58; RESP 16; TEMP 36.1; O2SAT 97
[2023-06-15] VITALS: BP 105/70; PULSE 62; RESP 18; TEMP 36.2; O2SAT 97
[2023-06-15] MEDS: methylPREDNISolone 125 MG/2 ML VIAL 60 MG IV ×5 (00:42→23:44)
[2023-06-15] MEDS: diazePAM 10 MG/2 ML SYRINGE 5 MG IV ×2 (00:43→21:16)
[2023-06-15 04:00] VITALS: BP 103/66; PULSE 60; RESP 17; TEMP 36.3; O2SAT 97
[2023-06-15] MEDS: LEVOTHYROXINE 50 MCG TABLET PO (06:47)
[2023-06-15 08:00] VITALS: BP 113/81; PULSE 58; RESP 16; TEMP 36; O2SAT 97
[2023-06-15] MEDS: diphenhydrAMINE 50 MG/ML VIAL IV (09:15)
--- NOTE | 2023-06-15 10:49 | CM.DPC ---
DCP Cont. Reviewed EMR and team rounds for pt's status updates. Pt's facial swelling is improving, plan is for her to d/c home today, spouse will transport. No further DCP needs identified at this time.
[2023-06-15] MEDS: FUROSEMIDE 20 MG/2 ML VIAL IV (11:10)
[2023-06-15] MEDS: FAMOTIDINE 20 MG/2 ML VIAL IV ×2 (11:10→21:17)
[2023-06-15 12:00] VITALS: BP 110/77; PULSE 55; RESP 16; TEMP 36.3; O2SAT 97
--- NOTE | 2023-06-15 15:45 | P.PN_ITS ---
Subjective Subjective Interval history: Patient's swelling of lips, tongue and neck improved more today. But she is still having touble swallowing solids and can only drink liquids. Says IV lasix greatly improved the pressure in her chest and abdomen. Exam Vital Signs (past 8 hours): - 06/15/23 08:00 06/15/23 12:00 Temperature 96.8 F L 97.4 F L Pulse Rate 58 L 55 L Respiratory Rate 16 16 Blood Pressure 113/81 110/77 Pulse Oximetry 97 97 Oxygen Delivery Method Room Air Oxygen Flow Rate 0 Narrative Exam Narrative: Angioedema of the tongue and lips is improving. She has a patent airway and her uvula is easily visualized. Normal speech, anxious. Lungs are clear with no wheezing and normal rate and effort. There is no stridor. Heart is regular without murmur. Abdomen is nondistended and non tender. Some swelling of the left hand and left foot which has improved. No urticaria. Objective Labs 06/12/23 15:54 06/12/23 15:54 [facility] Medical History Iron deficiency anemia Family history of breast cancer in mother Anxiety Hyperglycemia Hypothyroidism Anti-polysaccharide antibody deficiency Vitamin D deficiency Elevated liver enzymes Lung granuloma Surgical History History of gastric bypass Social History household members: significant other and children Smoking Status: Never smoker Assessment & Plan Assessment & Plan narrative: 1. Allergic reaction to iron, present on admission and improving. 2. Anti polysaccharide antibody deficiency, present on admission and active. 3. Iron deficiency anemia, present on admission and active. 4. Hypothyroidism, present on admission and active. 5. Vitamin-D deficiency, present on admission and stable. 6. Chest pain, improving Plan: We will continue current therapy of IV steroids, Benadryl, and Pepcid. We will monitor her airway. Iron level 105. Added ferrlecit to allergy list. Chest pain improved with IV lasix. Repeat AM dose ordered. Dispo: Home on 06/16. Time Spent With Patient Time with patient: 30 to 49 minutes with 50% spent counseling/coordinating care Quality VTE Deep Vein Thrombosis/Pulmonary Embolism Present on Admission: No
[2023-06-15 16:00] VITALS: BP 118/73; PULSE 75; RESP 16; TEMP 36.8; O2SAT 97
[2023-06-15 20:00] VITALS: BP 124/81; PULSE 64; RESP 17; TEMP 36.4; O2SAT 98
[2023-06-16] VITALS: BP 113/78; PULSE 67; RESP 15; TEMP 36.1; O2SAT 97
[2023-06-16 04:00] VITALS: BP 126/80; PULSE 60; RESP 17; TEMP 36.5; O2SAT 97
[2023-06-16] MEDS: LEVOTHYROXINE 50 MCG TABLET PO (05:39)
[2023-06-16] MEDS: methylPREDNISolone 125 MG/2 ML VIAL 60 MG IV ×2 (05:48→08:33)
[2023-06-16 08:00] VITALS: BP 141/99; PULSE 60; RESP 18; TEMP 36.4; O2SAT 99
[2023-06-16] MEDS: FUROSEMIDE 20 MG/2 ML VIAL IV (08:33)
[2023-06-16] MEDS: FAMOTIDINE 20 MG/2 ML VIAL IV (08:33)
--- NOTE | 2023-06-16 10:06 | P.DS_ITS ---
History of Present Illness History of Present Illness Date Patient Seen: 06/16/23 Time Patient Seen: 10:06 Chief complaint: sent by ISMAEL Bobby Narrative: Per admitting provider, The patient is a pleasant 37-year-old female who presents with an allergic reaction to an IV iron infusion. She was given the infusion yesterday and had an immediate reaction prompting a visit to the ED. at that time she had urticarial symptoms and some angioedema. She was treated with IV steroids as well as Benadryl and Pepcid. She was discharged with p.o. Benadryl and prednisone. She returns today because of ongoing swelling and possible increased swelling of the lips and tongue. She keeps biting her tongue because it is big. She denies any dyspnea, or wheezing. The only other allergy she has a history of is to walnuts and she does carry an EpiPen but has never had to use this. She also notes receiving IVIG monthly and will sometimes get mild reactions including palpitations and itchiness. She has a history of iron- deficiency anemia as well as anti polysaccharide antibody deficiency. This is what she receives IVIG for. She denies any nausea, headache, fevers, or chills. No diarrhea, or vomiting. Today in the ED she was given repeat doses of Solu-Medrol, and Benadryl as well as Pepcid. Discharge Providers Provider Date of admission: 06/14/23 15:17 Discharge Date: 06/16/23 Primary care physician: Caleb Esposito MD Discharge provider: Jermaine Kelly DO Summary Hospital Course Discharge Diagnosis: 1. Allergic reaction to iron, present on admission and improving. 2. Anti polysaccharide antibody deficiency, present on admission and active. 3. Iron deficiency anemia, present on admission and active. 4. Hypothyroidism, present on admission and active. 5. Vitamin-D deficiency, present on admission and stable. 6. Chest pain, improving Hospital Course: This is a 37 year old female admitted with a severe allergic reaction to IV iron. She improved over the course of a couple days with IV steroids, benadryl and anithistamine. She had no airway compromise. She did have a significant amount of anasarca, but improved with a few doses of lasix with marked improvement in symptoms after. She was discharged with a recommended steroid taper. She was also recommended to continue non-drowsy antihistamine. IV iron was added to medication allergy list. No other changes to her home medications were recommended. She did complain of some chest pressure, but had normal appearing EKG and troponin levels were negative. Presumed secondary to possible fluid overload as she did improve somewhat with furosemide. If this continues salvage determiner recommend additional evaluation with primary care provider. Time Spent with Patient Time spent: Less than 30 minutes Exam Vital Signs (past 8 hours): - 06/16/23 04:00 06/16/23 08:00 Temperature 97.7 F 97.6 F Pulse Rate 60 60 Respiratory Rate 17 18 Blood Pressure 126/80 141/99 H Pulse Oximetry 97 99 Oxygen Flow Rate 0 Oxygen Delivery Method Room Air Oxygen Flow Rate 0 Narrative Exam Narrative: Angioedema of the tongue and lips is improving. She has a patent airway and her uvula is easily visualized. Normal speech, anxious. Lungs are clear with no wheezing and normal rate and effort. There is no stridor. Heart is regular without murmur. Abdomen is nondistended and non tender. Some swelling of the left hand and left foot which has improved. No urticaria. Objective Labs 06/12/23 15:54 06/12/23 15:54 [facility] Medical History (Updated 06/17/23 @ 11:31 by Caleb Esposito MD) History of intravenous iron allergy Iron deficiency anemia Family history of breast cancer in mother Anxiety Hyperglycemia Hypothyroidism Anti-polysaccharide antibody deficiency Vitamin D deficiency Elevated liver enzymes Lung granuloma Surgical History History of gastric bypass Social History household members: significant other and children Smoking Status: Never smoker Discharge Plan Discharge Plan Patient Disposition: Home Provider Discharge Comment: You were admitted to the hospital with an allergic reaction to IV iron. This improved with steroids and supportive care. Continue prednisone taper, with first dose tonight then daily after that. Recommend continuing a nondrowsy antihistamine like liu or zyrtec for a week as well. As symptoms develop you can take benadryl too. Recommend ibuprofen for the chest pressure you're hearing. Discharge orders & Medications Prescriptions: New prednisone 20 mg tablet See Rx Instructions .ROUTE .COMPLEX Qty: 17 0RF Rx Instructions: Take 60 mg daily for 3 days, 40 mg daily for 2 days, 20 mg daily for 2 days then stop. albuterol sulfate 90 mcg/actuation HFA aerosol inhaler 1 inh inhalation QID PRN (Reason: shortness of breath or wheezing) Qty: 8.5 0RF Continued levothyroxine 50 mcg capsule 50 mcg PO DAILY immune globulin (human) (IgG) 10 gram Recon Soln 20 g IV Q1M Follow up/Referrals: Caleb Esposito MD [Primary Care Provider] - Diet/Activity/Treatments Diet: Diet as Tolerated and Regular Activity: As tolerated Visit Report/Discharge Packet Stand Alone Forms: Patient Portal/API, Stroke Signs & Symptoms Discharge Data Primary Care Provider: Caleb Esposito Quality VTE Deep Vein Thrombosis/Pulmonary Embolism Present on Admission: No
--- NOTE | 2023-06-16 11:51 | PC.NURSE ---
Pt A&OX4, VSS,afebrile on RA. She is independent in the room, she tolerates fruit and smoothie well for breakfast and denies n/vor difficulty swallowing. She is cleared for discharge this a.m. by . She vergbalizes understanding of medications, follow up and activity. She is escorted via w/ch to private vehicle with for discharge home at 1040 this a.m. with all of her personal belongings.
== END 2023-06-16 10:40 | disposition home or self-care (01) | DRG 916 ==
LOC: ED 17:52 → AC 17:52
PROVIDERS: Student in an Organized Health Care Education/Training Program; Admitting Provider Hospitalist; Emergency Provider Emergency Medicine; PCP Family Medicine; Referring Provider Emergency Medicine; Visit Provider Hospitalist
DX: T78.3XXA Angioneurotic edema, initial encounter (principal); D80.6 Antibody deficiency with near-normal immunoglobulins or with hyperimmunoglobulinemia; T45.4X5A Adverse effect of iron and its compounds, initial encounter; D50.9 Iron deficiency anemia, unspecified; E03.9 Hypothyroidism, unspecified; E55.9 Vitamin D deficiency, unspecified; R07.9 Chest pain, unspecified; X58.XXXA Exposure to other specified factors, initial encounter
CPT/HCPCS: 36415; 71045; 80053; 83540; 83550; 84484; 85025; 85610; 85730; 93005; 93010; 96374; 96375; 99284; G0378; J1170; J1200; J1940; J2270; J2405; J2930; J3360

== ENCOUNTER → 2023-06-24 10:04 | Outpatient (CLI) | payer OTHER, SELFPAY ==
[2023-06-23 10:39] VITALS: BMI 24.7
[2023-06-24 10:52] LABS: Add Manual Diff / Slide Review NO; Basophils Absolute Auto 100 /uL (0-100); Basophils Percent Auto 0.8 % (0-2); Eosinophils Absolute Auto 100 /uL (0-450); Eosinophils Percent Auto 1.2 % (2-4); Hematocrit 34.3 % (36-46); Hemoglobin 11.1 g/dL (12.0-16.0); Lymphocytes Absolute Auto 4200 /uL (1100-4500); Lymphocytes Percent Auto 39.2 % (25-40); Mean Corpuscular HGB Conc 32.3 % (30-36); Mean Corpuscular Hemoglobin 25.5 PG (26-34); Mean Corpuscular Volume 79.1 fL (80-100); Monocytes Absolute Auto 600 /uL (0-900); Neutrophils Absolute Auto 5600 /uL (1500-7000); Neutrophils Percent Auto 52.8 % (50-75); Platelet Count 249 X10^3/uL (150-400); Red Blood Cell Count 4.33 X10^6/uL (4.0-5.2); Red Cell Distribution Width 15.7 % (11.6-14.8); White Blood Cell Count 10.7 X10^3/uL (4.5-11.0)
[2023-06-24 11:18] LABS: HEMOLYSIS < 15 (0-50); Iron 78 ug/dL (37-170)
[2023-06-24 11:20] LABS: Alanine Aminotransferase 14 IU/L (<35); Albumin 3.7 g/dL (3.5-5.0); Albumin Globulin Ratio 1.4 (1.0-2.8); Alkaline Phosphatase 45 U/L (38-126); Aspartate Aminotransferase 15 IU/L (14-36); BUN Creatinine Ratio 27.8 (6-22); Bilirubin Total 0.5 mg/dL (0.2-1.3); Blood Urea Nitrogen 15 mg/dL (7-17); Calcium 8.7 mg/dL (8.4-10.2); Carbon Dioxide 25 mmol/L (22-32); Chloride 104 mmol/L (98-107); Estimated Glomerular Filt Rate > 60 mL/min (>60); Globulin 2.6 g/dL (1.7-4.1); Glucose 85 mg/dL (70-100); HEMOLYSIS < 15 (0-50); Potassium 3.8 mmol/L (3.4-5.1); Sodium 137 mmol/L (137-145); Total Protein 6.3 g/dL (6.3-8.2)
[2023-06-24 11:29] LABS: Percent Iron Saturation 25 % (15-50); Total Iron Binding Capacity 307 ug/dL (265-497); Transferrin 240 mg/dL (206-381)
[2023-06-24 11:44] LABS: Cortisol Random 1.57 ug/dL
[2023-06-24 11:48] LABS: Ferritin 70 ng/mL (6-137)
[2023-06-24 12:03] LABS: Vitamin B12 869 pg/mL (239-931)
== END ==
PROVIDERS: PCP Family Medicine; Referring Provider Family Medicine; Visit Provider Family Medicine
DX: Z88.8 Allergy status to other drugs, medicaments and biological substances (principal); D50.9 Iron deficiency anemia, unspecified; Z98.84 Bariatric surgery status
CPT/HCPCS: 36415; 80053; 82533; 82607; 82728; 83540; 83550; 85025

== ENCOUNTER → 2023-07-09 13:03 | Outpatient (CLI) | payer OTHER, SELFPAY ==
[2023-06-23 10:39] VITALS: BMI 24.7
[2023-07-09 14:07] LABS: Add Manual Diff / Slide Review NO; Basophils Absolute Auto 0 /uL (0-100); Basophils Percent Auto 0.5 % (0-2); Eosinophils Absolute Auto 100 /uL (0-450); Eosinophils Percent Auto 2.7 % (2-4); Hematocrit 34.7 % (36-46); Hemoglobin 11.3 g/dL (12.0-16.0); Lymphocytes Absolute Auto 1500 /uL (1100-4500); Lymphocytes Percent Auto 32.3 % (25-40); Mean Corpuscular HGB Conc 32.6 % (30-36); Mean Corpuscular Hemoglobin 26.1 PG (26-34); Mean Corpuscular Volume 80.1 fL (80-100); Monocytes Absolute Auto 300 /uL (0-900); Monocytes Percent Auto 7.6 % (3-14); Neutrophils Absolute Auto 2600 /uL (1500-7000); Neutrophils Percent Auto 56.9 % (50-75); Platelet Count 285 X10^3/uL (150-400); Red Blood Cell Count 4.33 X10^6/uL (4.0-5.2); Red Cell Distribution Width 18.5 % (11.6-14.8); White Blood Cell Count 4.6 X10^3/uL (4.5-11.0)
[2023-07-09 14:41] LABS: Alanine Aminotransferase 28 IU/L (<35); Albumin 4.3 g/dL (3.5-5.0); Albumin Globulin Ratio 1.6 (1.0-2.8); Alkaline Phosphatase 65 U/L (38-126); Aspartate Aminotransferase 23 IU/L (14-36); BUN Creatinine Ratio 12.7 (6-22); Bilirubin Total 0.5 mg/dL (0.2-1.3); Blood Urea Nitrogen 7 mg/dL (7-17); Calcium 9.6 mg/dL (8.4-10.2); Carbon Dioxide 25 mmol/L (22-32); Chloride 108 mmol/L (98-107); Estimated Glomerular Filt Rate > 60 mL/min (>60); Globulin 2.7 g/dL (1.7-4.1); Glucose 88 mg/dL (70-100); HEMOLYSIS < 15 (0-50); Iron 56 ug/dL (37-170); Sodium 138 mmol/L (137-145)
[2023-07-09 14:53] LABS: Percent Iron Saturation 16 % (15-50); Total Iron Binding Capacity 346 ug/dL (265-497); Transferrin 304 mg/dL (206-381)
[2023-07-09 15:18] LABS: Ferritin 35 ng/mL (6-137)
== END ==
LOC: LAB 13:04
PROVIDERS: PCP Family Medicine; Referring Provider Family Medicine; Visit Provider Family Medicine
DX: D50.9 Iron deficiency anemia, unspecified (principal); D64.9 Anemia, unspecified
CPT/HCPCS: 36415; 80053; 82728; 83540; 83550; 85025

== ENCOUNTER → 2023-07-22 15:52 | Outpatient (CLI) | payer OTHER, SELFPAY ==
[2023-06-23 10:39] VITALS: BMI 24.7
== END ==
PROVIDERS: PCP Family Medicine; Visit Provider Family Medicine
DX: R30.0 Dysuria (principal)
CPT/HCPCS: 87086

== ENCOUNTER → 2023-07-22 16:31 | Outpatient (CLI) | payer OTHER, SELFPAY ==
[2023-06-23 10:39] VITALS: BMI 24.7
--- NOTE | 2023-07-22 16:33 | DI.CT.S_ITS ---
PROCEDURE: CT KIDNEY URETER BLADDER (KUB) INDICATIONS: nephrolithiasis TECHNIQUE: Axial sections were acquired from the lung bases to the pubic symphysis. Coronal and sagittal reformats were performed. For radiation dose reduction, the following was used: automated exposure control, adjustment of mA and/or kV according to patient size. COMPARISON: [facility], CT, CT KIDNEY URETER BLADDER (KUB), 09/16/2022, 20:43. FINDINGS: Image quality: Diagnostic. Lower Chest: No significant findings. The visualized portions of the bilateral breast implants are grossly intact. URINARY: Right Kidney: No hydronephrosis or nephrolithiasis. The peer amidst are radiodense suggesting medullary nephrocalcinosis. Right Ureter: No hydroureter or ureterolithiasis. Left Kidney: There is a nonobstructing 4 mm calculus in the lower pole of the left kidney. The renal pyramids are radiodense. Left Ureter: No hydroureter or ureterolithiasis. Bladder: Normal wall thickness. No stones. ABDOMEN: Liver: No contour-deforming solid mass. Gallbladder: No radiopaque gallstones or wall thickening. Biliary ducts: No biliary dilation. Pancreas: No ductal dilation. Spleen: Size is within normal limits. Adrenal Glands: No adrenal nodules. Stomach and Bowel: Patient is status post gastric surgery. Normal colonic caliber, without significant wall thickening. The appendix is thin walled. There are scattered sigmoid diverticula. No evidence for diverticulitis. Peritoneum: No abnormal intraperitoneal fluid. No free air. Ventral Wall: No hernia. Abdominal Nodes: No enlarged retroperitoneal or mesenteric lymph nodes. Vessels: Aorta and inferior vena cava are normal in size. PELVIS: Pelvic Organs: There is a 2.1 cm low-density left ovarian cyst. The uterus and right ovary are grossly unremarkable. Pelvic Nodes: Unremarkable. Multiple phleboliths are scattered throughout the pelvis. Miscellaneous: No inguinal hernias are seen. Bones: Unremarkable. IMPRESSION: 1. Nonobstructive left nephrolithiasis. No hydronephrosis, hydroureter, ureterolithiasis or right nephrolithiasis. 2. Medullary nephrocalcinosis. 3. No acute intra-abdominal findings. Normal appendix. Diverticulosis. No acute diverticulitis. 4. Left ovarian cyst which is within physiologic limits for size in a premenopausal female. Dictated by: Bisi Osorio M.D. on 07/22/2023 at 16:55 Approved by: Bisi Osorio M.D. on 07/22/2023 at 17:01
[2023-07-22 18:03] LABS: Ferritin 19 ng/mL (6-137)
[2023-07-22 18:13] LABS: HEMOLYSIS < 15 (0-50); Iron 77 ug/dL (37-170)
[2023-07-22 18:23] LABS: Transferrin 379 mg/dL (206-381)
[2023-07-22 18:24] LABS: Percent Iron Saturation 18 % (15-50); Total Iron Binding Capacity 427 ug/dL (265-497)
== END ==
PROVIDERS: PCP Family Medicine; Referring Provider Family Medicine; Visit Provider Family Medicine
DX: N39.0 Urinary tract infection, site not specified (principal); N20.0 Calculus of kidney; D50.9 Iron deficiency anemia, unspecified; R30.0 Dysuria; K57.30 Diverticulosis of large intestine without perforation or abscess without bleeding; E83.59 Other disorders of calcium metabolism; N29 Other disorders of kidney and ureter in diseases classified elsewhere; N83.202 Unspecified ovarian cyst, left side
CPT/HCPCS: 36415; 74176; 82728; 83540; 83550; 87086

== ENCOUNTER → 2023-09-01 07:16 | Outpatient (CLI) | payer OTHER, SELFPAY ==
[2023-08-20 09:22] VITALS: BMI 24.7
--- NOTE | 2023-09-01 07:17 | DI.RAD.S_ITS ---
PROCEDURE: XR KUB INDICATIONS: calculus of the kidney TECHNIQUE: One view of the abdomen acquired. COMPARISON: [facility], CT, CT KIDNEY URETER BLADDER (KUB), 07/22/2023, 16:38. [facility], CR, XR KUB, 06/10/2023, 9:34. FINDINGS: Surgical changes and devices: None. Bowel: Bowel gas pattern is normal. Soft tissues: Significant stool overlies both renal shadows. There is a calcification identified overlying the left renal shadow. Questionable punctate area appearing to correspond to CT region overlying the right renal shadow is also identified.. Visualized solid organ contours appear normal in size. Bones: No suspicious bony lesions. IMPRESSION: Limited visualization secondary to stool overlying the renal shadows. Single calcifications are present overlying the expected locations of the kidneys as above. It is noted that more calcifications were present on CT of 07/22/2023 within the left kidney that currently visualized. Either they have recently passed or simply not visualized secondary to overlying structures. Dictated by: Ana Paula Bowman M.D. on 09/01/2023 at 11:13 Approved by: Ana Paula Bowman M.D. on 09/01/2023 at 11:17
== END ==
PROVIDERS: PCP Family Medicine; Referring Provider Urology; Visit Provider Urology
DX: N20.0 Calculus of kidney (principal)
CPT/HCPCS: 74018

== ENCOUNTER → 2023-09-16 13:25 | Outpatient (CLI) | payer OTHER, SELFPAY ==
[2023-08-20 09:22] VITALS: BMI 24.7
[2023-09-16 13:44] LABS: Add Manual Diff / Slide Review NO; Basophils Absolute Auto 100 /uL (0-100); Basophils Percent Auto 0.7 % (0-2); Eosinophils Absolute Auto 400 /uL (0-450); Eosinophils Percent Auto 4.9 % (2-4); Hemoglobin 12.5 g/dL (12.0-16.0); Lymphocytes Absolute Auto 2700 /uL (1100-4500); Mean Corpuscular HGB Conc 33.7 % (30-36); Mean Corpuscular Volume 83.2 fL (80-100); Monocytes Absolute Auto 600 /uL (0-900); Monocytes Percent Auto 7.7 % (3-14); Neutrophils Absolute Auto 4200 /uL (1500-7000); Neutrophils Percent Auto 52.7 % (50-75); Platelet Count 235 X10^3/uL (150-400); Red Blood Cell Count 4.45 X10^6/uL (4.0-5.2); Red Cell Distribution Width 15.7 % (11.6-14.8)
[2023-09-16 14:09] LABS: HEMOLYSIS < 15 (0-50); Iron 80 ug/dL (37-170)
[2023-09-16 14:21] LABS: Percent Iron Saturation 19 % (15-50); Total Iron Binding Capacity 411 ug/dL (265-497); Transferrin 344 mg/dL (206-381)
[2023-09-16 14:28] LABS: Free T3, Triiodothyronine Free 4.74 pg/mL (2.77-5.27); Free T4, Direct Thyroxine 1.07 ng/dL (0.78-2.19)
[2023-09-16 14:42] LABS: TSH w/ Reflex to FT4 0.54 uIU/mL (0.47-4.68)
[2023-09-16 14:47] LABS: Ferritin 9 ng/mL (6-137)
[2023-09-16 15:51] LABS: Vitamin D 25 Hydroxy (D3) 60.4 ng/mL (30.0-100.0)
== END ==
PROVIDERS: PCP Family Medicine; Referring Provider Family Medicine; Visit Provider Family Medicine
DX: D64.9 Anemia, unspecified (principal); E03.9 Hypothyroidism, unspecified; D50.9 Iron deficiency anemia, unspecified; R74.8 Abnormal levels of other serum enzymes
CPT/HCPCS: 36415; 82306; 82728; 83540; 83550; 84439; 84443; 84481; 85025

== ENCOUNTER → 2023-10-24 11:51 | Outpatient (CLI) | payer OTHER, SELFPAY ==
[2023-08-20 09:22] VITALS: BMI 24.7
[2023-10-24 12:59] LABS: Add Manual Diff / Slide Review NO; Basophils Absolute Auto 0 /uL (0-100); Basophils Percent Auto 0.4 % (0-2); Eosinophils Absolute Auto 200 /uL (0-450); Eosinophils Percent Auto 2.3 % (2-4); Hematocrit 35.3 % (36-46); Lymphocytes Absolute Auto 2400 /uL (1100-4500); Mean Corpuscular HGB Conc 33.9 % (30-36); Mean Corpuscular Hemoglobin 28.4 PG (26-34); Mean Corpuscular Volume 83.9 fL (80-100); Monocytes Absolute Auto 600 /uL (0-900); Neutrophils Absolute Auto 4700 /uL (1500-7000); Neutrophils Percent Auto 59.3 % (50-75); Platelet Count 242 X10^3/uL (150-400); Red Blood Cell Count 4.21 X10^6/uL (4.0-5.2); Red Cell Distribution Width 13.5 % (11.6-14.8); White Blood Cell Count 7.9 X10^3/uL (4.5-11.0)
[2023-10-24 13:14] LABS: Erythrocyte Sedimentation Rate 12 MM/HR (0-20)
[2023-10-24 13:15] LABS: HEMOLYSIS < 15 (0-50); Iron 122 ug/dL (37-170)
[2023-10-24 13:20] LABS: Alanine Aminotransferase 13 IU/L (<35); Albumin 4.4 g/dL (3.5-5.0); Albumin Globulin Ratio 1.6 (1.0-2.8); Alkaline Phosphatase 51 U/L (38-126); Aspartate Aminotransferase 19 IU/L (14-36); BUN Creatinine Ratio 20.7 (6-22); Bilirubin Total 0.5 mg/dL (0.2-1.3); Blood Urea Nitrogen 12 mg/dL (7-17); C-Reactive Protein Quant < 0.5 mg/dL (<1.0); Calcium 8.8 mg/dL (8.4-10.2); Carbon Dioxide 25 mmol/L (22-32); Chloride 108 mmol/L (98-107); Estimated Glomerular Filt Rate > 60 mL/min (>60); Globulin 2.8 g/dL (1.7-4.1); Glucose 90 mg/dL (70-100); HEMOLYSIS < 15 (0-50); Potassium 4.4 mmol/L (3.4-5.1); Sodium 137 mmol/L (137-145); Total Protein 7.2 g/dL (6.3-8.2)
[2023-10-24 13:26] LABS: Percent Iron Saturation 30 % (15-50); Total Iron Binding Capacity 404 ug/dL (265-497); Transferrin 315 mg/dL (206-381)
[2023-10-24 13:48] LABS: TSH w/ Reflex to FT4 0.61 uIU/mL (0.47-4.68)
[2023-10-24 13:52] LABS: Ferritin 8 ng/mL (6-137)
== END ==
PROVIDERS: PCP Family Medicine; Referring Provider Family Medicine; Visit Provider Family Medicine
DX: D50.9 Iron deficiency anemia, unspecified (principal); D64.9 Anemia, unspecified; E03.9 Hypothyroidism, unspecified; I73.00 Raynaud's syndrome without gangrene
CPT/HCPCS: 36415; 80053; 82728; 83540; 83550; 84443; 85025; 85651; 86038; 86140

== ENCOUNTER 2024-03-04 13:54 | Emergency (ER) | payer OTHER, SELFPAY ==
[2023-08-20 09:22] VITALS: BMI 24.7
[2024-03-04] VITALS (9 sets, daily range): BP systolic 105–142; BP diastolic 56–78; PULSE 82–117; RESP 15–23; TEMP 36.8; O2SAT 97–100; BMI 24.3
[2024-03-04] MEDS: methylPREDNISolone 125 MG/2 ML VIAL IV (14:21)
[2024-03-04] MEDS: FAMOTIDINE 20 MG/2 ML VIAL IV (14:22)
--- NOTE | 2024-03-04 16:00 | ED_ITS ---
HPI - Allergic Reaction General Chief complaint: Allergic Reaction Stated complaint: Sent by MD; Confusion, Anaphalactic episodes Time Seen by Provider: 03/04/24 15:54 Source: patient Mode of arrival: Ambulatory History of Present Illness HPI narrative: Patient 38-year-old female history of allergic reaction and anemia presents today with lip swelling limbs swelling rash a little bit of difficulty swallowing. She previously had anaphylaxis true iron infusion in May she was then admitted for a few days. She had different iron infusion today developed similar symptoms. She was instructed not to have Benadryl this time because it can cause complications. She still feels like her tongue is swollen lips are swollen and fingers are swollen after Solu-Medrol and Pepcid. Related Data Home Medications Medication Instructions Recorded Confirmed immune globulin (human) (IgG) 10 20 g IV Q1M 06/16/23 03/04/24 gram intravenous solution cetirizine 10 mg tablet 10 mg PO DAILY 03/04/24 03/04/24 cyclobenzaprine 5 mg tablet 5 mg PO BID 03/04/24 03/04/24 hydrocodone 10 mg-acetaminophen 1 tab PO Q8H PRN 03/04/24 03/04/24 325 mg tablet Previous Rx's Medication Instructions Recorded levothyroxine 50 mcg capsule 50 mcg PO DAILY #90 caps 09/19/23 ergocalciferol (vitamin D2) 1,250 1,250 mcg PO QWEEK #12 caps 09/23/23 mcg (50,000 unit) capsule lorazepam 0.5 mg tablet 0.5 mg PO BID PRN anxiety #60 tabs 10/06/23 albuterol sulfate 90 mcg/actuation 1 puff PO 4XD PRN for wheezing 01/29/24 aerosol inhaler #8.5 grams epinephrine 0.3 mg/0.3 mL 0.3 mg (0.3 mL) IM Q5-15M PRN 03/04/24 injection, auto-injector anaphylaxis #2 ea prednisone 20 mg tablet 40 mg (2 x 20 mg) PO DAILY #10 tabs 03/04/24 Allergies Allergy/AdvReac Type Severity Reaction Status Date / Time iron [From Venofer] Allergy Severe Anaphylaxis Verified 03/04/24 14:44 walnut Allergy Severe Swelling Verified 03/04/24 14:44 of Lip/Tongue/Throat Patient History Medical History (Updated 03/04/24 @ 17:23 by Kimmie Petty DO) History of urinary tract infection History of gross hematuria Left renal stone Hx of migraines Hx of renal calculi Hyperlipidemia History of asthma Hypotension Fatigue associated with anemia History of intravenous iron allergy Iron deficiency anemia Family history of breast cancer in mother Anxiety Hyperglycemia Hypothyroidism Anti-polysaccharide antibody deficiency Vitamin D deficiency Elevated liver enzymes Lung granuloma Surgical History History of repair of hiatal hernia History of gastric bypass Social History household members: significant other and children Smoking Status: Never smoker Smoking Status: Never smoker alcohol intake frequency: holidays/special occasions only Substance Use Type: does not use Exam Initial Vital Signs Initial Vital Signs: Vital Signs Temperature 98.2 F 03/04/24 13:55 Pulse Rate 117 H 03/04/24 13:55 Respiratory Rate 16 03/04/24 13:55 Blood Pressure 140/70 03/04/24 13:55 Pulse Oximetry 100 03/04/24 13:55 Oxygen Delivery Method Room Air 03/04/24 13:55 GENERAL: Alert well-appearing 38-year-old female HEENT: Head atraumatic,EOMI, pupils reactive, mild lip swelling tongue swelling no muffled voice managing her own secretions CARDIOVASCULAR: Regular rate and rhythm without murmurs, rubs or gallops. RESPIRATORY: Breath sounds equal bilaterally, no wheezes rales or rhonchi. ABDOMEN: Soft, nontender. Normoactive bowel sounds all 4 quadrants. No guarding or rebound. EXTREMITIES: Normal range of motion, no clubbing or edema. Neurovascularly intact NEUROLOGICAL: Alert and oriented x4.Normal gait and speech. Cranial nerves II through XII grossly intact. SKIN: Warm, dry, no laceration, no petechiae, no rashes or lesions. Course Orders Ordered: Discontinued Medications Epinephrine HCl (Epinephrine 1 Mg/Ml) 0.5 mg IM NOW ONE Stop: 03/04/24 16:00 Last Admin: 03/04/24 16:07 Dose: 0.5 mg Documented By: JESÚS Famotidine (Famotidine 20 Mg/2 Ml Vial) 20 mg IV NOW MAURO Last Admin: 03/04/24 14:22 Dose: 20 mg Documented By: JESÚS Methylprednisolone (Methylprednisolone 125 Mg/2 Ml Vial) 125 mg IV NOW ONE Stop: 03/04/24 14:08 Last Admin: 03/04/24 14:21 Dose: 125 mg Documented By: JESÚS Vital Signs Vital signs: Vital Signs - 8 hr 03/04/24 13:55 03/04/24 14:03 03/04/24 14:03 Temperature 98.2 F Pulse Rate 117 H 114 H Respiratory Rate 16 Blood Pressure 140/70 142/78 H Pulse Oximetry 100 99 Oxygen Delivery Method Room Air 03/04/24 14:30 03/04/24 14:30 03/04/24 15:00 Temperature Pulse Rate 98 H 95 H Respiratory Rate 18 20 Blood Pressure 115/58 L Pulse Oximetry 97 99 Oxygen Delivery Method 03/04/24 15:30 03/04/24 15:30 03/04/24 16:00 Temperature Pulse Rate 88 82 Respiratory Rate 18 15 Blood Pressure 118/73 Pulse Oximetry 99 100 Oxygen Delivery Method 03/04/24 16:00 03/04/24 16:30 03/04/24 16:30 Temperature Pulse Rate 106 H Respiratory Rate 18 Blood Pressure 114/70 113/68 Pulse Oximetry 100 Oxygen Delivery Method 03/04/24 17:00 03/04/24 17:00 03/04/24 17:30 Temperature Pulse Rate 106 H 104 H Respiratory Rate 16 23 Blood Pressure 105/56 L Pulse Oximetry 99 Oxygen Delivery Method MDM - Allergic Reaction MDM Narrative Medical decision making narrative: Patient 38-year-old presenting today with anaphylaxis secondary to iron i nfusion. She does have obvious lip swelling and tongue swelling. No rash her extremities look a little swollen as well. We discussed epinephrine which she is agreeable to Upon re-evaluation she does have improvement with swelling she feels like she is able to swallow more. This is much less severe reaction then she has had previously. We discussed discharge home with steroid along with EpiPen. 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 Discharge Plan Departure Patient Disposition: Home Clinical Impression: Anaphylactic reaction Instructions: DI for Anaphylaxis Activity Restrictions/Additional Instructions: *You have been diagnosed with anaphylaxis *What to do: At this time please talk to your providers about next steps. I am sorry you have to go through this. *Continue to take medications as directed Epinephrine in leg as needed Prednisone 40 mg once a day for 5 days May try Zyrtec or famotidine 20 mg once a day *Follow up with your primary care provider in 2-3 days or call [phone] *Return to ER if you should have increased difficulty breathing tongue swelling lip swelling or any new, worsening or concerning symptoms Prescriptions: New prednisone 20 mg tablet 40 mg PO DAILY Qty: 10 0RF epinephrine 0.3 mg/0.3 mL auto-injector 0.3 mg IM Q5-15M PRN (Reason: anaphylaxis) Qty: 2 0RF Rx Instructions: do not exceed 3 doses per episode No Action levothyroxine 50 mcg capsule 50 mcg PO DAILY Qty: 90 3RF ergocalciferol (vitamin D2) 1,250 mcg (50,000 unit) capsule 1,250 mcg PO QWEEK Qty: 12 3RF lorazepam 0.5 mg tablet 0.5 mg PO BID PRN (Reason: anxiety) Qty: 60 1RF albuterol sulfate 90 mcg/actuation HFA aerosol inhaler 1 puff PO 4XD PRN (Reason: for wheezing) Qty: 8.5 3RF cyclobenzaprine 5 mg tablet 5 mg PO BID hydrocodone-acetaminophen 10-325 mg tablet 1 tab PO Q8H PRN cetirizine 10 mg tablet 10 mg PO DAILY immune globulin (human) (IgG) 10 gram Recon Soln 20 g IV Q1M Referrals: Caleb Esposito MD [Primary Care Provider] - Stand Alone Forms: Patient Portal/API/Survey
[2024-03-04] MEDS: EPINEPHrine 1 MG/ML 0.5 MG IM (16:07)
== END 2024-03-04 17:39 | disposition home or self-care (01) ==
PROVIDERS: Emergency Provider Emergency Medicine; PCP Family Medicine
DX: T88.6XXA Anaphylactic reaction due to adverse effect of correct drug or medicament properly administered, initial encounter (principal); T45.4X5A Adverse effect of iron and its compounds, initial encounter; R22.0 Localized swelling, mass and lump, head
CPT/HCPCS: 36415; 96372; 96374; 96375; 99284; J0171; J2919

== ENCOUNTER → 2024-06-14 10:46 | Outpatient (CLI) | payer OTHER, SELFPAY ==
[2023-08-20 09:22] VITALS: BMI 24.7
[2024-06-14 12:22] LABS: Add Manual Diff / Slide Review NO; Basophils Absolute Auto 0 /uL (0-100); Basophils Percent Auto 0.5 % (0-2); Eosinophils Absolute Auto 200 /uL (0-450); Eosinophils Percent Auto 3.1 % (2-4); Hematocrit 37.4 % (36-46); Hemoglobin 12.6 g/dL (12.0-16.0); Lymphocytes Absolute Auto 2400 /uL (1100-4500); Lymphocytes Percent Auto 41.6 % (25-40); Mean Corpuscular HGB Conc 33.6 % (30-36); Mean Corpuscular Hemoglobin 28.8 PG (26-34); Mean Corpuscular Volume 85.8 fL (80-100); Monocytes Absolute Auto 500 /uL (0-900); Monocytes Percent Auto 8.2 % (3-14); Neutrophils Absolute Auto 2700 /uL (1500-7000); Neutrophils Percent Auto 46.6 % (50-75); Platelet Count 260 X10^3/uL (150-400); Red Blood Cell Count 4.36 X10^6/uL (4.0-5.2); Red Cell Distribution Width 13.7 % (11.6-14.8); White Blood Cell Count 5.9 X10^3/uL (4.5-11.0)
[2024-06-14 12:48] LABS: HEMOLYSIS < 15 (0-50); Iron 87 ug/dL (37-170)
[2024-06-14 13:00] LABS: Percent Iron Saturation 28 % (15-50); Total Iron Binding Capacity 307 ug/dL (265-497); Transferrin 283 mg/dL (206-381)
== END ==
PROVIDERS: PCP Family Medicine; Referring Provider Internal Medicine; Visit Provider Internal Medicine
DX: D50.9 Iron deficiency anemia, unspecified (principal)
CPT/HCPCS: 36415; 83540; 83550; 85025

== ENCOUNTER → 2024-11-04 10:32 | Outpatient (CLI) | payer OTHER, SELFPAY ==
[2023-08-20 09:22] VITALS: BMI 24.7
[2024-11-04 11:13] LABS: Add Manual Diff / Slide Review NO; Hematocrit 37.4 % (36-46); Hemoglobin 13.0 g/dL (12.0-16.0); Lymphocytes Absolute Auto 2400 /uL (1100-4500); Mean Corpuscular HGB Conc 34.7 % (30-36); Mean Corpuscular Hemoglobin 29.7 PG (26-34); Mean Corpuscular Volume 85.4 fL (80-100); Platelet Count 313 X10^3/uL (150-400)
[2024-11-04 11:37] LABS: HEMOLYSIS < 15 (0-50); Iron 119 ug/dL (37-170)
[2024-11-04 11:38] LABS: Alanine Aminotransferase 30 IU/L (<35); Albumin 4.5 g/dL (3.5-5.0); Albumin Globulin Ratio 1.4 (1.0-2.8); Alkaline Phosphatase 75 U/L (38-126); Blood Urea Nitrogen 17 mg/dL (7-17); Calcium 9.2 mg/dL (8.4-10.2); Carbon Dioxide 25 mmol/L (22-32); Chloride 102 mmol/L (98-107); Cholesterol 259 mg/dL (140-199); Estimated Glomerular Filt Rate > 60 mL/min (>60); Globulin 3.3 g/dL (1.7-4.1); Glucose 94 mg/dL (70-99); HDL Cholesterol 57 mg/dL (40-60); HEMOLYSIS < 15 (0-50); Potassium 4.5 mmol/L (3.4-5.1); Sodium 136 mmol/L (137-145); Total Protein 7.8 g/dL (6.3-8.2); Triglycerides 100 mg/dL (35-150)
[2024-11-04 11:50] LABS: Percent Iron Saturation 31 % (15-50); Total Iron Binding Capacity 381 ug/dL (265-497); Transferrin 329 mg/dL (206-381)
[2024-11-04 11:56] LABS: Vitamin D 25 Hydroxy (D3) 53.5 ng/mL (30.0-100.0)
[2024-11-04 12:07] LABS: TSH w/ Reflex to FT4 0.74 uIU/mL (0.47-4.68)
[2024-11-04 12:13] LABS: Ferritin 21 ng/mL (6-137)
== END ==
PROVIDERS: PCP Family Medicine; Referring Provider Family Medicine; Visit Provider Family Medicine
DX: Z00.00 Encounter for general adult medical examination without abnormal findings (principal); D50.9 Iron deficiency anemia, unspecified; E03.9 Hypothyroidism, unspecified; D80.6 Antibody deficiency with near-normal immunoglobulins or with hyperimmunoglobulinemia; E55.9 Vitamin D deficiency, unspecified
CPT/HCPCS: 36415; 80053; 80061; 82306; 82728; 83540; 83550; 84443; 85025

== ENCOUNTER → 2025-04-27 12:59 | Outpatient (CLI) | payer OTHER, SELFPAY ==
[2023-08-20 09:22] VITALS: BMI 24.7
--- NOTE | 2025-04-27 13:00 | DI.MG.S_ITS ---
MM screening mammo implant BI: 04/27/2025. BI-RADS: 2 CLINICAL: 39-year old female for bilateral screening mammogram. Tyrer-Cuzick lifetime risk of 9.5%. Current reported family history of breast cancer: mother. The patient reports testing negative for BRCA gene mutation. The patient has bilateral implants. PRIOR EXAMS 06/04/2022. MAMMOGRAPHY TECHNIQUE: 2D and 3D (tomosynthesis) digital mammographic views obtained, with additional images as needed for full coverage. Current study was also evaluated with a Computer Aided Detection (CAD) system. DENSITY B. There are scattered areas of fibroglandular density. IMPLANTS Breast implants present. MAMMOGRAPHY FINDINGS Bilateral: There are no suspicious masses, calcifications, or other findings in the breast. IMPRESSION: * No evidence of malignancy with benign findings. RECOMMENDATIONS Bilateral * Annual screening mammography. OVERALL ASSESSMENT CATEGORY BI-RADS-2: Benign. [employer] recommends annual screening mammography beginning at age 40 for women with average risk of breast cancer. ELECTRONICALLY SIGNED: Paige Cuba M.D. on 04/27/2025 at 05:49:50 PM PT Interpreting Station ID: [id number]
== END ==
PROVIDERS: PCP Family Medicine; Referring Provider Family Medicine; Visit Provider Family Medicine
DX: Z12.31 Encounter for screening mammogram for malignant neoplasm of breast (principal); Z80.3 Family history of malignant neoplasm of breast; Z98.82 Breast implant status
CPT/HCPCS: 77063; 77067